=== PATIENT | male | born 2000 | race Caucasian/White ===

== ENCOUNTER 2023-01-18 20:38 | Inpatient (IN) ==
[2023-01-18] MEDS ORDERED: LORazepam 2 MG/1 ML VIAL ONE (20:43)
[2023-01-18] MEDS ORDERED: LEVETIRACETAM IV STA (20:49)
[2023-01-18] MEDS ORDERED: LORazepam 2 MG/1 ML VIAL IV STA ×2 (20:49→20:58)
[2023-01-18] MEDS ORDERED: SODIUM CHLORIDE 0.9% IV STA (20:49)
[2023-01-18] MEDS ORDERED: SODIUM CHLORIDE 0.9% 1,000 ML IV ONE (20:49)
--- NOTE | 2023-01-18 20:53 | Emergency Department Note ---
Impression & Plan Status epilepticus, AMS (altered mental status) ED Provider Note NAME: ALESHA SCHMIDT AGE: 23 SEX: M : 2000 ARRIVES VIA: Ambulance INFORMANT: EMS ED PROVIDER(S): Jamie Carroll DO CHIEF COMPLAINT: AMS HPI: Patient is a 23-year-old male with past medical history of seizure disorder who presents the ER via EMS. History is obtained from EMS due to the patient's mentation/altered mental status. Police were initially called as patient was running around the parking lot in the rain naked. EMS arrived and he was brought in. He was very combative. He had 2 seizures per EMS. His alcohol for the police was 0.8. Per EMS his room in house was covered with marijuana. Significant other was notified. PAST MEDICAL HISTORY:See Below PAST SURGICAL HISTORY:See Below FAMILY HISTORY:See Below SOCIAL HISTORY:See Below HOME MEDICATIONS:See Below ALLERGIES:See Below VITALS:See Below PHYSICAL EXAMINATION: GENERAL: Sitting up in bed, alert, well appearing, well nourished, no distress, non-toxic EYE EXAM: normal conjunctiva. PERRL and EOM's grossly intact. OROPHARYNX: no exudate, no erythema, lips, buccal mucosa, and tongue normal and mucous membranes are moist NECK: supple, no nuchal rigidity, no adenopathy, non-tender LUNGS: Clear to auscultation. Normal chest wall mechanics HEART: no murmurs, S1 normal and S2 normal ABDOMEN: abdomen soft, non-tender, normo-active bowel sounds, no masses, no rebound or guarding. BACK: Back is symmetrical on inspection and there is no deformity, no midline tenderness, no CVA tenderness. SKIN: no rashes and no bruising UPPER EXTREMITIES: upper extremities are grossly normal. LOWER EXTREMITIES: No pitting edema. NEURO EXAM: Normal sensorium, cranial nerves II-XII intact, normal speech, no gross weakness of arms, no gross weakness of legs. No drift. Finger to nose intact. Gross sensation intact. MEDICAL DECISION MAKING: Patient is a 23-year-old male who presents ER for above-stated complaint. Patient was brought in by EMS. He was found to be agitated and combative in the ER not following commands. IV was placed and he was given initially 2 mg of Ativan IV and it was redosed and given another 2 mg of IV Ativan. We are eventually able to obtain blood work and a CT of his head which was unremarkable. Labs showed a mild leukocytosis of 11,000. No significant anemia. BMP was low with a CO2 of 15. Lactate is elevated at 4. LFTs bilirubin was unremarkable. Lipase is normal. Salicylates acetaminophen and alcohol was normal. Unclear if this was an alcohol withdrawal seizure versus drug induced versus seizure disorder. With him having 2 seizures prior to arrival did discuss with the hospitalist patient was admitted for further work- up. Triage Nursing notes reviewed. Limited review of prior medical records performed Vital Signs: reviewed and remarkable for no significant abnormalities Differential diagnosis: Differential diagnosis includes etiologies such as infection, hypoglycemia, electrolyte abnormalities, cardiac sources, intracerebral event, trauma, toxicologic, neurologic, as well as others were entertained. ER treatment provided: See below Diagnostics interpreted by me include EKG and cardiac monitoring as listed below: -Cardiac Monitoring: An order was placed for continuous cardiac monitoring. The monitor shows a rate of 90 with sinus rhythm. -ECG: Sinus tachycardia rate of 115 Normal axis No PVCs QTc 398 -Laboratory studies:Interpreted by me as stated above in MDM and shown below. Imaging studies: Xrays: As interpreted by me: Portable AP upright 1 view of the chest shows no focal CTs show: CT head was negative Consultation(s): As described in MDM Procedures:none Critical Care: None Past Med/Surg History Medical History (Updated 01/19/23 @ 01:20 by Jamie Carroll DO) Seizure Seizure on 01/15/23 and 01/18/23 Surgical History No significant past surgical history Social History Smoking Status: Current every day smoker Tobacco Type: E-cigarettes / Vaping Hx Alcohol Use: Yes Alcohol type: beer and hard liquor Hx Substance Use: Yes Preferred Language: German Waste Duster Required: No Beliefs That Will Affect Care: None marital status: Single Current Living Situation: Significant Other current occupational status: employed Feels Safe at Home: Yes Assistive Devices: None Allergies Allergies Allergy/AdvReac Type Severity Reaction Status Date / Time No Known Allergies Allergy Unverified 01/20/21 01:04 Home Meds Home Medications Medication Instructions Recorded Confirmed ibuprofen 200 mg tablet 400 mg PO Q4 PRN Pain 12/22/20 01/20/21 Results & Data (ED) Vital Signs Vital Signs - 24 hr 01/18/23 20:41 01/18/23 20:43 01/18/23 20:50 Temperature 36.9 C Temperature Source Oral Pulse Rate 93 H 83 94 H Respiratory Rate 22 18 Respiratory Effort / Characteristics Non-Labored Spontaneous Respiratory Depth Normal Respiratory Pattern Regular Blood Pressure 114/74 Blood Pressure Mean 87 Blood Pressure Position Lying Pulse Oximetry 98 94 94 Oxygen Delivery Method Room Air Room Air Room Air Sepsis Recent Fever Within 48 Hours No Sepsis New/Unexplained Change in Mental Status No Sepsis Action Taken by Nursing No Action Required 01/18/23 20:21 Temperature Temperature Source Pulse Rate Respiratory Rate Respiratory Effort / Characteristics Respiratory Depth Respiratory Pattern Blood Pressure Blood Pressure Mean Blood Pressure Position Pulse Oximetry 95 Oxygen Delivery Method Room Air Sepsis Recent Fever Within 48 Hours Sepsis New/Unexplained Change in Mental Status Sepsis Action Taken by Nursing Laboratory Data 01/18/23 20:50 01/18/23 23:15 Lab Results 01/18/23 01/18/23 01/18/23 Range/Units 20:50 20:50 20:50 WBC 11.50 H (4.8-10.8) K/ul RBC 5.49 (4.70-6.10) M/uL Hgb 16.2 (14.0-18.0) g/dl Hct 49.4 (42.0-52.0) % MCV 90.0 (80.0-100.0) fL MCH 29.5 (25.0-34.0) pg MCHC 32.8 (32.0-36.0) g/dL RDW Std Deviation 41.9 (36.4-46.3) fL RDW Coeff of Mingo 12.7 (11.5-14.5) % Plt Count 282 (130-400) K/uL MPV 9.3 L (9.4-12.4) fL Immature Gran % (Auto) 1.0 % Neut % (Auto) 75.0 % Lymph % (Auto) 18.0 % [place] % (Auto) 5.5 % Eos % (Auto) 0.1 % Baso % (Auto) 0.4 % Neut # (Auto) 8.63 H (1.40-6.50) K/uL Lymph # (Auto) 2.07 (1.20-3.40) K/uL [place] # (Auto) 0.63 H (0.11-0.59) K/uL Eos # (Auto) 0.01 (0.00-0.50) K/uL Baso # (Auto) 0.05 (0.00-0.20) K/uL Immature Gran # (Auto) 0.11 (0.01-0.20) K/uL Sodium 143 (136-145) mmol/L Potassium 4.6 (3.5-5.1) mmol/L Chloride 102 (98-107) mmol/L Carbon Dioxide 15 L (21-32) mmol/L Anion Gap 26 H (3-11) BUN 17 (6-23) mg/dl Creatinine 1.22 (0.6-1.4) mg/dl Est Cr Clr Drug Dosing 77.2 ml/min Est GFR ( Amer) 94.9 ml/min Est GFR (Non-Af Amer) 81.9 ml/min BUN/Creatinine Ratio 13.9 (10-20) Glucose 128 H (70-99(Fasting)) mg/dl Osmolality (280-300) mOsm/kg Calcium 10.4 H (8.6-10.3) mg/dl Total Bilirubin 0.6 (0.2-1.0) mg/dl AST 29 (13-39) U/L ALT 15 (7-52) U/L Alkaline Phosphatase 68 (34-104) U/L Total Creatine Kinase 257 H (30-223) U/L Troponin I High Sens 4.5 (0-20) pg/ml Total Protein 9.1 H (6.0-8.3) gm/dl Albumin 5.8 H (3.4-5.0) gm/dl Globulin 3.3 (2.5-4.0) gm/dl Albumin/Globulin Ratio 1.8 (0.9-2) Lipase 15 (11-82) U/L Ethyl Alcohol mg/dL < 10.0 (<10.0) mg/dl 01/18/23 Range/Units 20:50 WBC (4.8-10.8) K/ul RBC (4.70-6.10) M/uL Hgb (14.0-18.0) g/dl Hct (42.0-52.0) % MCV (80.0-100.0) fL MCH (25.0-34.0) pg MCHC (32.0-36.0) g/dL RDW Std Deviation (36.4-46.3) fL RDW Coeff of Mingo (11.5-14.5) % Plt Count (130-400) K/uL MPV (9.4-12.4) fL Immature Gran % (Auto) % Neut % (Auto) % Lymph % (Auto) % [place] % (Auto) % Eos % (Auto) % Baso % (Auto) % Neut # (Auto) (1.40-6.50) K/uL Lymph # (Auto) (1.20-3.40) K/uL [place] # (Auto) (0.11-0.59) K/uL Eos # (Auto) (0.00-0.50) K/uL Baso # (Auto) (0.00-0.20) K/uL Immature Gran # (Auto) (0.01-0.20) K/uL Sodium (136-145) mmol/L Potassium (3.5-5.1) mmol/L Chloride (98-107) mmol/L Carbon Dioxide (21-32) mmol/L Anion Gap (3-11) BUN (6-23) mg/dl Creatinine (0.6-1.4) mg/dl Est Cr Clr Drug Dosing ml/min Est GFR ( Amer) ml/min Est GFR (Non-Af Amer) ml/min BUN/Creatinine Ratio (10-20) Glucose (70-99(Fasting)) mg/dl Osmolality 322 H (280-300) mOsm/kg Calcium (8.6-10.3) mg/dl Total Bilirubin (0.2-1.0) mg/dl AST (13-39) U/L ALT (7-52) U/L Alkaline Phosphatase (34-104) U/L Total Creatine Kinase (30-223) U/L Troponin I High Sens (0-20) pg/ml Total Protein (6.0-8.3) gm/dl Albumin (3.4-5.0) gm/dl Globulin (2.5-4.0) gm/dl Albumin/Globulin Ratio (0.9-2) Lipase (11-82) U/L Ethyl Alcohol mg/dL (<10.0) mg/dl Administered Medications Discontinued Medications Sodium Chloride (Nss) 1,000 mls @ 999 mls/hr IV .Q1H1M ONE Stop: 01/18/23 21:49 Last Infusion: 01/18/23 23:12 Dose: 0 mls/hr Documented By: Admin: 01/18/23 21:05 Dose: 999 mls/hr Documented By: QGV Levetiracetam 2,350 mg/ Sodium (Chloride) 123.5 mls @ 741 mls/hr IV NOW STA Stop: 01/18/23 20:50 Last Infusion: 01/18/23 23:11 Dose: 0 mls/hr Documented By: Admin: 01/18/23 22:16 Dose: 741 mls/hr Documented By: QGV Lorazepam (Lorazepam 2 Mg/1 Ml Vial) Confirm Administered Dose 4 mg .ROUTE .STK- MED ONE Stop: 01/18/23 20:44 Last Admin: 01/18/23 21:06 Dose: Not Given Documented By: QGV Lorazepam (Lorazepam 2 Mg/1 Ml Vial) 4 mg IV NOW STA Stop: 01/18/23 20:50 Last Admin: 01/18/23 21:06 Dose: 4 mg Documented By: QGV Lorazepam (Lorazepam 2 Mg/1 Ml Vial) 2 mg IV NOW STA Stop: 01/18/23 20:59 Last Admin: 01/18/23 23:42 Dose: Not Given Documented By: BS Imaging Data Radiologist's Impression: Head CT 01/18/23 20:49 CT SCAN OF THE BRAIN WITHOUT IV CONTRAST CLINICAL HISTORY: Change in mental status. Intoxication. Assess for seizure. COMPARISON STUDY: CT of the brain dated 01/14/2023. TECHNIQUE: Unenhanced axial CT scan of the brain is performed from the vertex to the skull base. A dose lowering technique was utilized adhering to the principles of ALARA. CT DOSE: 702.09 mGy.cm FINDINGS: Brain parenchyma: The brain parenchyma is normal in appearance. There is no hemorrhage, mass effect, or evidence of acute territorial ischemia by CT criteria. Mcknight-white matter differentiation is preserved. No extra-axial fluid collection is seen. Ventricles, sulci, cisterns: Normal in configuration. Intracranial vasculature: The visualized intracranial vasculature at the skull base is normal in appearance. Calvarium: Unremarkable. Sinuses and mastoids: The visualized paranasal sinuses are clear. The mastoid air cells are well pneumatized. Orbits: The bony orbits are grossly intact. IMPRESSION: No acute intracranial abnormality. ACT 112: Negative or not required by law. Electronically signed by: Yonny Dotson M.D. 01/18/2023 9:44 PM Discharge Plan Visit Data Chief Complaint: Alcohol Intoxication Stated Complaint: ETOH, Confusion ED Provider: Jamie Carroll Discharge Problem: Status epilepticus, AMS (altered mental status) Patient Disposition: Admitted As Inpatient Discharge Instructions Interventions: ED Discharge Assessment Last Done: 01/18/23 23:27
[2023-01-18 21:47] LABS: Basophils # (auto) 0.05 K/uL (0.00-0.20); Basophils % (auto) 0.4 %; Eosinophils # (auto) 0.01 K/uL (0.00-0.50); Eosinophils % (auto) 0.1 %; Hematocrit (blood only) 49.4 % (42.0-52.0); Hemoglobin 16.2 g/dl (14.0-18.0); Immature Granulocytes # (auto) 0.11 K/uL (0.01-0.20); Lymphocytes # (auto) 2.07 K/uL (1.20-3.40); Mean Corpuscular Hemoglobin 29.5 pg (25.0-34.0); Mean Corpuscular Hgb Conc 32.8 g/dL (32.0-36.0); Mean Platelet Volume 9.3 fL (9.4-12.4); Monocytes # (auto) 0.63 K/uL (0.11-0.59); Monocytes % (auto) 5.5 %; Neutrophils # (auto) 8.63 K/uL (1.40-6.50); Platelet Count 282 K/uL (130-400); RDW Coefficient of Variation 12.7 % (11.5-14.5); RDW Standard Deviation 41.9 fL (36.4-46.3); Red Blood Count 5.49 M/uL (4.70-6.10)
--- NOTE | 2023-01-18 21:47 | CT Scan Report ---
CT SCAN OF THE BRAIN WITHOUT IV CONTRAST CLINICAL HISTORY: Change in mental status. Intoxication. Assess for seizure. COMPARISON STUDY: CT of the brain dated 01/14/2023. TECHNIQUE: Unenhanced axial CT scan of the brain is performed from the vertex to the skull base. A d ose lowering technique was utilized adhering to the principles of ALARA. CT DOSE: 702.09 mGy.cm FINDINGS: Brain parenchyma: The brain parenchyma is normal in appearance. There is no hemorrhage, mass effect, or evidence of acute territorial ischemia by CT criteria. Mcknight-white matter differentiation is preser kat. No extra-axial fluid collection is seen. Ventricles, sulci, cisterns: Normal in configuration. Intracranial vasculature: The visualized intracranial vasculature at the skull base is normal in appe arance. Calvarium: Unremarkable. Sinuses and mastoids: The visualized paranasal sinuses are clear. The mastoid air cells are well pneu matized. Orbits: The bony orbits are grossly intact. IMPRESSION: No acute intracranial abnormality. ACT 112: Negative or not required by law. Electronically signed by: Yonny Dotson M.D. 01/18/2023 9:44 PM
[2023-01-18 22:04] LABS: Albumin Globulin Ratio 1.8 (0.9-2); Albumin Level 5.8 gm/dl (3.4-5.0); BUN Creatinine Ratio 13.9 (10-20); Bilirubin,Total 0.6 mg/dl (0.2-1.0); Calcium 10.4 mg/dl (8.6-10.3); Creatinine Clr Calc Pharmacy 77.2 ml/min; Est GFR (African American) 94.9 ml/min; Est GFR (Non-African American) 81.9 ml/min; Globulin 3.3 gm/dl (2.5-4.0); Potassium 4.6 mmol/L (3.5-5.1); Total Protein 9.1 gm/dl (6.0-8.3)
[2023-01-18 22:10] LABS: Troponin I High Sensitivity 4.5 pg/ml (0-20)
--- NOTE | 2023-01-18 22:54 | History & Physical Report ---
Date of Service January 18, 2023 Assessment & Plan (1) Seizure: Plan: 23yo male brought in by ambulance after being found running around naked. Patient combative. Witnessed seizure x 2 which resolved Ativan given in the field. Patient with mild leukocytosis as well as high anion gap metabolic acidosis with HCO3=15. Gap of 26. Patient loaded with Keppra and given Ativan in ER Patient had seizure on 01/15/23 as well - per documentation review, presume that this was his first seizure. His UTox at that time was POSITIVE for high amounts of THC. -Admit to PCU -Maintain seizure precautions -Check MRI brain with seizure protocol -EEG ordered - will likely need to be completed outpatient (2) High anion gap metabolic acidosis: Plan: Patient with anion gap of 26 at present, HCO3=15. Osmolar gap is calculated at 23 presently -Will repeat BMP, Osm now as well as VBG and Lactate -If osmolar gap persists will discuss with MICU and consider Fomepizole for possible Methanol or Ethylene glycol ingestion History of Present Illness Chief Complaint: seizure Primary Care Provider: NO PCP Anatoliy Vincent is a 23yo male with no significant past medical history presenting with seizure. Patient was found by police this evening running around and dancing naked in the rain. A breathalyzer test was taken on site and patient registered at 0.7. EMS was called and he was brought in by ambulance. Patient combative in the field. He had two witnessed seizures. Was administered Ativan 2mg by EMS prior to arrival. Upon arrival to the ER patient afebrile, HD stable. He continued to be combative and was administered 4mg IV Ativan with improvement. Of note, patient was seen in the ER on 01/15/23 after a seizure which was thought to be secondary to EtOH + Marijuana use. Patient unable to provide clear details of history at this time but the seizure on 01/15/23 seems to be his first seizure. He is not on any AEDs and has no listed past medial history in his chart. ER Course: Keppra 2350mg Ativan 4mg NSS x 1L Allergies Allergy/AdvReac Type Severity Reaction Status Date / Time No Known Allergies Allergy Unverified 01/20/21 01:04 Home Medications Medication Instructions Recorded Confirmed Type ibuprofen 200 mg tablet 400 mg PO Q4 PRN Pain 12/22/20 01/20/21 History Past Med/Surg History Medical History (Updated 01/18/23 @ 22:49 by Samantha Snider DO) Seizure Seizure on 01/15/23 and 01/18/23 Surgical History No significant past surgical history Social History Smoking Status: Unknown if ever smoked Tobacco Type: E-cigarettes / Vaping Preferred Language: Upper Sorbian marital status: Single current occupational status: employed Feels Safe at Home: Declines to Answer Review of Systems Review of Systems: Unobtainable due to cognitive status Physical Exam Physical Exam: General: patient somnolent after receiving Ativan, post-ictal state. NAD, resting comfortably. Opens eyes to noxious stimuli. Limited verbal response Skin: warm, dry, intact, no rashes or lesions HEENT: NC/AT, no bruising/laceration or facial bone instability, no mastoid redness or bruising, PERRL, anicteric sclera, conjunctiva without injection, external ear normal to inspection and nontender, nares patent, moist mucus membranes, dentition intact, no oropharyngeal lesions, neck supple, no c-spine deformity or step-off, trachea midline, no LAD, no thyromegaly, no JVD Heart: +S1/S2, regular, no m/r/g, normal chest wall motion, no bruising Lungs: equal air entry bilaterally, no rales/rhonchi/wheezes Abd: +BS, soft, NT/ND, no masses/organomegaly/ascites, no abdominal wall bruising Ext: warm, 2+ pulses in UE/LE bilaterally, no clubbing/cyanosis or edema Neuro: somnolent, arousable, PERRL, minimal verbal response, withdraws 4 extremities from noxious stimuli Results & Data Results & Data Vital Signs (Past 12 Hours) Vital Signs Temp Pulse Resp BP Pulse Ox O2 Del Method 01/18/23 20:50 94 H 94 Room Air 01/18/23 20:43 83 18 94 Room Air 01/18/23 20:41 36.9 C 93 H 22 114/74 98 Room Air Laboratory Results Laboratory Results WBC 11.50 K/ul (4.8-10.8) H 01/18/23 20:50 RBC 5.49 M/uL (4.70-6.10) 01/18/23 20:50 Hgb 16.2 g/dl (14.0-18.0) 01/18/23 20:50 Hct 49.4 % (42.0-52.0) 01/18/23 20:50 MCV 90.0 fL (80.0-100.0) 01/18/23 20:50 MCH 29.5 pg (25.0-34.0) 01/18/23 20:50 MCHC 32.8 g/dL (32.0-36.0) 01/18/23 20:50 RDW Std Deviation 41.9 fL (36.4-46.3) 01/18/23 20:50 RDW Coeff of Mingo 12.7 % (11.5-14.5) 01/18/23 20:50 Plt Count 282 K/uL (130-400) 01/18/23 20:50 MPV 9.3 fL (9.4-12.4) L 01/18/23 20:50 Immature Gran % (Auto) 1.0 % 01/18/23 20:50 Neut % (Auto) 75.0 % 01/18/23 20:50 Lymph % (Auto) 18.0 % 01/18/23 20:50 [place] % (Auto) 5.5 % 01/18/23 20:50 Eos % (Auto) 0.1 % 01/18/23 20:50 Baso % (Auto) 0.4 % 01/18/23 20:50 Neut # (Auto) 8.63 K/uL (1.40-6.50) H 01/18/23 20:50 Lymph # (Auto) 2.07 K/uL (1.20-3.40) 01/18/23 20:50 [place] # (Auto) 0.63 K/uL (0.11-0.59) H 01/18/23 20:50 Eos # (Auto) 0.01 K/uL (0.00-0.50) 01/18/23 20:50 Baso # (Auto) 0.05 K/uL (0.00-0.20) 01/18/23 20:50 Immature Gran # (Auto) 0.11 K/uL (0.01-0.20) 01/18/23 20:50 Sodium 143 mmol/L (136-145) 01/18/23 20:50 Potassium 4.6 mmol/L (3.5-5.1) 01/18/23 20:50 Chloride 102 mmol/L (98-107) 01/18/23 20:50 Carbon Dioxide 15 mmol/L (21-32) L 01/18/23 20:50 Anion Gap 26 (3-11) H 01/18/23 20:50 BUN 17 mg/dl (6-23) 01/18/23 20:50 Creatinine 1.22 mg/dl (0.6-1.4) 01/18/23 20:50 Est Cr Clr Drug Dosing 77.2 ml/min 01/18/23 20:50 Est GFR ( Amer) 94.9 ml/min 01/18/23 20:50 Est GFR (Non-Af Amer) 81.9 ml/min 01/18/23 20:50 BUN/Creatinine Ratio 13.9 (10-20) 01/18/23 20:50 Glucose 128 mg/dl (70-99(Fasting)) H 01/18/23 20:50 Osmolality 322 mOsm/kg (280-300) H 01/18/23 20:50 Calcium 10.4 mg/dl (8.6-10.3) H 01/18/23 20:50 Total Bilirubin 0.6 mg/dl (0.2-1.0) 01/18/23 20:50 AST 29 U/L (13-39) 01/18/23 20:50 ALT 15 U/L (7-52) 01/18/23 20:50 Alkaline Phosphatase 68 U/L (34-104) 01/18/23 20:50 Total Creatine Kinase 257 U/L (30-223) H 01/18/23 20:50 Troponin I High Sens 4.5 pg/ml (0-20) 01/18/23 20:50 Total Protein 9.1 gm/dl (6.0-8.3) H 01/18/23 20:50 Albumin 5.8 gm/dl (3.4-5.0) H 01/18/23 20:50 Globulin 3.3 gm/dl (2.5-4.0) 09/09/23 20:50 Albumin/Globulin Ratio 1.8 (0.9-2) 01/18/23 20:50 Lipase 15 U/L (11-82) 01/18/23 20:50 Ethyl Alcohol mg/dL < 10.0 mg/dl (<10.0) 01/18/23 20:[address] 01/18/23 20:49 CT SCAN OF THE BRAIN WITHOUT IV CONTRAST CLINICAL HISTORY: Change in mental status. Intoxication. Assess for seizure. COMPARISON STUDY: CT of the brain dated 01/14/2023. TECHNIQUE: Unenhanced axial CT scan of the brain is performed from the vertex to the skull base. A dose lowering technique was utilized adhering to the principles of ALARA. CT DOSE: 702.09 mGy.cm FINDINGS: Brain parenchyma: The brain parenchyma is normal in appearance. There is no hemorrhage, mass effect, or evidence of acute territorial ischemia by CT criteria. Mcknight-white matter differentiation is preserved. No extra-axial fluid collection is seen. Ventricles, sulci, cisterns: Normal in configuration. Intracranial vasculature: The visualized intracranial vasculature at the skull base is normal in appearance. Calvarium: Unremarkable. Sinuses and mastoids: The visualized paranasal sinuses are clear. The mastoid air cells are well pneumatized. Orbits: The bony orbits are grossly intact. IMPRESSION: No acute intracranial abnormality. ACT 112: Negative or not required by law. Electronically signed by: Yonny Dotson M.D. 01/18/2023 9:44 PM ECG Additional Comments: EKG with ST at 150, poor tracing PG Care Time/CCT Total # of Minutes Spent Total Time Spent with Patient: Total time spent is greater than 50% in coordination of care (as documented) at patient's floor/unit and/or counseling patient: Coding Level of Care Code 89978 INT INP/OBS CARE 3/75MIN Diagnoses Seizure R56.9 High anion gap metabolic acidosis E87.29
[2023-01-18 23:36] LABS: HCO3 VBG 27 mmol/L; Oxygen Saturation VBG < 60.0 %; PCO2 VBG 57 mmHg (38-50); PO2 VBG 31 mmHg; pH VBG 7.28 (7.36-7.41)
[2023-01-19 00:11] LABS: BUN Creatinine Ratio 17.3 (10-20); Calcium 9.2 mg/dl (8.6-10.3); Creatinine Clr Calc Pharmacy 96.2 ml/min; Est GFR (African American) 123.7 ml/min; Est GFR (Non-African American) 106.7 ml/min; Magnesium 1.8 mg/dl (1.7-2.4); Phosphorus 2.4 mg/dl (2.5-4.9); Potassium 4.4 mmol/L (3.5-5.1)
[2023-01-19 00:25] LABS: Acetaminophen < 3 ug/ml (10-30); Salicylate < 3.0 mg/dl (3.0-30)
[2023-01-19 06:17] LABS: Calcium 9.3 mg/dl (8.6-10.3); Creatinine Clr Calc Pharmacy 103.6 ml/min; Est GFR (African American) 135.3 ml/min; Est GFR (Non-African American) 116.7 ml/min; Potassium 3.8 mmol/L (3.5-5.1)
[2023-01-19 06:33] LABS: Hematocrit (blood only) 39.3 % (42.0-52.0); Hemoglobin 13.8 g/dl (14.0-18.0); Mean Corpuscular Hemoglobin 29.9 pg (25.0-34.0); Mean Corpuscular Hgb Conc 35.1 g/dL (32.0-36.0); Mean Corpuscular Volume 85.4 fL (80.0-100.0); Mean Platelet Volume 8.8 fL (9.4-12.4); Platelet Count 210 K/uL (130-400); RDW Coefficient of Variation 12.6 % (11.5-14.5); RDW Standard Deviation 38.9 fL (36.4-46.3); Red Blood Count 4.62 M/uL (4.70-6.10); White Blood Count 13.16 K/ul (4.8-10.8)
--- NOTE | 2023-01-19 07:59 | XRay Report ---
XR chest 1V portable HISTORY: Chest pain, nonspecific COMPARISON: None. FINDINGS: The lungs are clear. Cardiac silhouette is normal in size. No pleural effusions. No pneumot horax. IMPRESSION: No acute process. ACT 112: Negative or not required by law. Electronically signed by: Gamal Abdul M.D. 01/19/2023 7:57 AM
--- NOTE | 2023-01-19 09:19 | Electrocardiogram Report ---
Test Reason : Blood Pressure : / mmHG Vent. Rate : 150 BPM Atrial Rate : 150 BPM P-R Int : 114 ms QRS Dur : 078 ms QT Int : 252 ms P-R-T Axes : 082 081 089 degrees QTc Int : 398 ms Poor data quality, interpretation may be adversely affected Sinus tachycardia Premature ventricular complexes Nonspecific ST and T wave abnormality Abnormal ECG When compared with ECG of 14-JAN-2023 04:16, Non-specific change in ST segment in Lateral leads Nonspecific T wave abnormality now evident in Lateral leads Confirmed by Corbin Eden ([id number]) on 01/19/2023 9:19:30 AM Referred By: REFERRED SELF Confirmed By:Corbin Eden
[2023-01-19] MEDS: LACTATED RINGER'S 1,000 ML IV SCH ×3 (11:38→22:39)
--- NOTE | 2023-01-19 12:16 | Magnetic Resonance Report ---
Brain MRI WITH AND WITHOUT CONTRAST HISTORY: new seizures- recurrent TECHNIQUE: Multiplanar multisequence MRI of the brain was performed both before and after the intrave nous administration of contrast. COMPARISON STUDY: Head CT 01/18/2023. FINDINGS: There are no areas of restricted diffusion to suggest acute infarction. The midline structu res are intact. The paranasal sinuses are clear. The mastoid air cells are clear. The ventricles and sulci are within normal limits for age. There is no mass, hematoma, midline shift. The major vascular flow-voids at the skull base are well maintained. Postcontrast sequences show no areas of abnormal e nhancement. Best seen on coronal FLAIR sequence image 12 of there is suggestion of mild increase t hickening and subtle increased T2 signal in the medial right temporal lobe. This raises the possibili ty of a seizure focus. IMPRESSION: 1. No acute infarct or intracranial hemorrhage. 2. Questionable increased T2 signal and thickening at the medial right temporal lobe in comparison to the left. This raises the possibly a seizure focus. Follow-up recommended to ensure stability/resolu tion. ACT 112: Negative or not required by law. Electronically signed by: Gamal Abdul M.D. 01/19/2023 12:14 PM
--- NOTE | 2023-01-19 21:38 | Hospitalist Progress Note ---
Date of Service January 19, 2023 Assessment & Plan (1) Seizure: Plan: 23yo male brought in by ambulance after being found running around naked. Patient combative. Witnessed seizure x 2 which resolved Ativan given in the field. Patient with mild leukocytosis as well as high anion gap metabolic acidosis with HCO3=15. Gap of 26. Patient loaded with Keppra and given Ativan in ER Patient had seizure on 01/15/23 as well - per documentation review, presume that this was his first seizure. His UTox at that time was POSITIVE for high amounts of THC. -Admit to PCU -Maintain seizure precautions -Check MRI brain with seizure protocol: negative -EEG ordered - will likely need to be completed outpatient. will monitor for another 24 hours (2) High anion gap metabolic acidosis: Plan: Patient with anion gap of 26 at present, HCO3=15. Osmolar gap is calculated at 23 presently -Will repeat BMP, Osm now as well as VBG and Lactate -If osmolar gap persists will discuss with MICU and consider Fomepizole for possible Methanol or Ethylene glycol ingestion Admission and Anticipated Discharge Date Admission Date: January 18, 2023 Subjective 23 yo male reports no new symptoms. Review of Systems Review of Systems: All systems reviewed & are unremarkable except as noted in HPI & below Physical Exam Constitutional: WD/WN, vitals as above Eyes: PERRL, conjunctivae normal, anicteric sclerae ENMT: external ear and nose normal, oropharynx normal Neck: trachea midline, no thyromegaly Respiratory: normal respiratory effort, lungs clear to auscultation Cardiovascular: RRR, no murmur, no edema Gastrointestinal (Abdomen): normal bowel sounds, soft, nontender, no hepatosplenomegaly Skin: no rashes, warm and dry Neurologic: PERRL, EOMI, accommodation nl, no face palsy, no dysarthria Psychiatric: A+Ox3, euthymic affect Results & Data Results & Data Vital Signs (Past 12 Hours) Vital Signs Temp Pulse Resp BP Pulse Ox O2 Del Method 01/19/23 19:18 36.8 C 68 16 121/77 93 Room Air 01/19/23 15:50 36.4 C L 62 16 120/75 100 Room Air 01/19/23 11:43 36.7 C 51 L 16 125/74 94 Room Air PG Care Time/CCT Total # of Minutes Spent Total Time Spent with Patient: Total time spent is greater than 50% in coordination of care (as documented) at patient's floor/unit and/or counseling patient: Coding Level of Care Code 02935 SUB INP/OBS CARE 235MIN Diagnoses Seizure R56.9 High anion gap metabolic acidosis E87.29
[2023-01-19] MEDS ORDERED: LORazepam 2 MG/1 ML VIAL IV PRN (22:39)
[2023-01-20 06:49] LABS: Hematocrit (blood only) 36.7 % (42.0-52.0); Hemoglobin 12.9 g/dl (14.0-18.0); Mean Corpuscular Hemoglobin 29.5 pg (25.0-34.0); Mean Corpuscular Hgb Conc 35.1 g/dL (32.0-36.0); Mean Platelet Volume 8.9 fL (9.4-12.4); Platelet Count 160 K/uL (130-400); RDW Coefficient of Variation 12.4 % (11.5-14.5); RDW Standard Deviation 37.9 fL (36.4-46.3); Red Blood Count 4.37 M/uL (4.70-6.10); White Blood Count 5.86 K/ul (4.8-10.8)
[2023-01-20 06:54] LABS: BUN Creatinine Ratio 14.9 (10-20); Calcium 8.6 mg/dl (8.6-10.3); Creatinine Clr Calc Pharmacy 129.9 ml/min; Est GFR (African American) 148.6 ml/min; Est GFR (Non-African American) 128.2 ml/min; Potassium 3.5 mmol/L (3.5-5.1)
--- NOTE | 2023-01-20 11:30 | Neurology Consultation ---
Date of Consultation January 20, 2023 Assessment & Plan (1) Seizure: Patient presents with seizure in the setting of alcohol and marijuana use. This is his second provoked seizure. His temporal lobe may be asymmetric though difficult to tell on coronal flair only. Mesial temporal changes are common post-seizure. Without a leukocytosis, headache, fever, meningeal signs the likelihood of HSV which also affects this area is less likely. Would not recommend LP at this point. Would not start an AED for provoked seizure but recommended he refrain from further alcohol intake. He needs a routine EEG and follow-up MRI as an outpatient. Would perform second MRI as epilepsy protocol with thin cuts and contrast. -- Routine EEG outpatient -- MRI brain with and without contrast with epilepsy protocol/thin cuts -- Would not recommend AED at this time, patient should refrain from drinking alcohol. -- Close neuro follow-up after discharge for above testing, please contact us with further questions. Telehealth Consultation Telehealth Information Telehealth Information: I performed this visit using a real-time telehealth connection between my location and the patients location ([facility]). After connecting through interactive tele-video, patient was identified by name and date of and/or wristband check.Patient (or authorized healthcare renewals representative) was informed that this was a telemedicine visit and it was being conducted confidentially over secure lines. My office door was closed and no one else was present in the room with me.Patient (or authorized healthcare repr esentative) provided consent to proceed with the visit, expressed an understanding of privacy and security of the telemedicine visit, and gave permission to have a hospital renewals representative in the room in order to assist with the visit and to conduct portions of the visit, as needed. I informed the patient (or authorized healthcare renewals representative) that I reviewed their record and presented the opportunity for them to ask any questions regarding the visit today. The patient agreed to participate. History of Present Illness Reason for Consultation: Seizure Requesting Physician: Dr. Richards Attending Physician: Jadiel Richards History of Present Illness Anatoliy Vincent is a 23 yo M presenting with a second time seizure yesterday. The patient reports drinking and smoking marijuana at his birthday republic[employer]. He remembers calling into work then waking up naked surrounded by police. He was found to have a significant acidosis upon arrival. The prior seizure on 01/15 was under similar circumstances of alcohol use. He has no history of prior seizure, febrile seizures. No description of aura. No prior brain infection, no neck stillness no recent illness. No history of migraine, denies any focal weakness and numbness. Allergies Allergy/AdvReac Type Severity Reaction Status Date / Time pollen extracts Allergy Severe Congested Unverified 01/19/23 20:48 Home Medications Medication Instructions Recorded Confirmed Type ibuprofen 200 mg tablet 400 mg PO Q4 PRN Pain 12/22/20 01/19/23 History Patient History Medical History (Updated 01/19/23 @ 01:20 by Jamie Carroll DO) Seizure Seizure on 01/15/23 and 01/18/23 Surgical History No significant past surgical history Social History Smoking Status: Current every day smoker Tobacco Type: E-cigarettes / Vaping Hx Alcohol Use: Yes Alcohol type: beer and hard liquor Hx Substance Use: Yes Preferred Language: Niue[place] [employer] Required: No Beliefs That Will Affect Care: None marital status: Single Current Living Situation: Significant Other current occupational status: employed Feels Safe at Home: Yes Assistive Devices: None Review of Systems +seizure Physical Exam Neurological Examination: Mental Status: Awake and alert. Oriented to person, place, and time. Fluent. Comprehension intact. Affect appropriate. Cranial Nerves: II: pupils 3/3 to 2/2 III/IV/: Versions intact without nystagmus, no gaze preference. V: Facial sensation symmetric to light touch VII: Facial expression symmetric VIII: Hearing intact to voice IX/X: Palate elevates symmetrically XI: Shoulder shrug symmetric XII: Tongue midline Motor: Strength was symmetric and antigravity throughout. Pronator drift was absent. There were no abnormal movements. Sensory: Sensation to light touch was intact. Reflexes: Unable to assess over telemedicine Results & Data Vital Signs (Past 12 Hours) Vital Signs Temp Pulse Pulse Resp BP Pulse Ox O2 Del Method 01/20/23 08:00 44 L 01/20/23 07:34 36.4 C L 60 17 122/73 100 Room Air 01/20/23 03:26 36.6 C 80 16 106/66 98 Room Air Laboratory Results Abnormal lab results 01/20/23 Range/Units 06:22 RBC 4.37 L (4.70-6.10) M/uL Hgb 12.9 L (14.0-18.0) g/dl Hct 36.7 L (42.0-52.0) % MPV 8.9 L (9.4-12.4) fL Diagnostic Findings MRI brain - possible R hippocampal swelling
[2023-01-20 12:22] LABS: Amphetamines+Metham, Urine Neg (Neg); Barbiturates, Urine Neg (Neg); Benzodiazepine, Urine Neg (Neg); Cocaine, Urine Neg (Neg); MDMA (Ecstacy), Urine Neg (Neg); Methadone, Urine Neg (Neg); Opiate, Urine Neg (Neg); Phencyclidine, Urine Neg (Neg)
--- NOTE | 2023-01-20 12:24 | Discharge Summary ---
Date of Service January 20, 2023 Admission HPI Per Admitting Provider Anatoliy Vincent is a 23yo male with no significant past medical history presenting with seizure. Patient was found by police this evening running around and dancing naked in the rain. A breathalyzer test was taken on site and patient registered at 0.7. EMS was called and he was brought in by ambulance. Patient combative in the field. He had two witnessed seizures. Was administered Ativan 2mg by EMS prior to a rrival. Upon arrival to the ER patient afebrile, HD stable. He continued to be combative and was administered 4mg IV Ativan with improvement. Of note, patient was seen in the ER on 01/15/23 after a seizure which was thought to be secondary to EtOH + Marijuana use. Patient unable to provide clear details of history at this time but the seizure on 01/15/23 seems to be his first seizure. He is not on any AEDs and has no listed past medial history in his chart. ER Course: Keppra 2350mg Ativan 4mg NSS x 1L Principal Diagnosis seizures likely alcohol induced Discharge Exam Constitutional WD/WN, vitals as above Eyes PERRL, conjunctivae normal, anicteric sclerae ENMT external ear and nose normal, oropharynx normal Neck trachea midline, no thyromegaly Respiratory normal respiratory effort, lungs clear to auscultation Cardiovascular RRR, no murmur, no edema Gastrointestinal (Abdomen) normal bowel sounds, soft, nontender, no hepatosplenomegaly Skin no rashes, warm and dry Neurologic PERRL, EOMI, accommodation nl, no face palsy, no dysarthria Psychiatric A+Ox3, euthymic affect Discharge Data Allergies Allergy/AdvReac Type Severity Reaction Status Date / Time pollen extracts Allergy Severe Congested Unverified 01/19/23 20:48 Consultations 01/18/23 22:10 ED Decision to Admit Stat 01/19/23 19:33 Consult Neurology Routine Ordered Studies 01/18/23 20:49 CT head/brain wo con Stat 01/19/23 09:30 MR brain seizure wo con Routine Hospital Course (1) Seizure: 23yo male brought in by ambulance after being found running around naked. Patient combative. Witnessed seizure x 2 which resolved Ativan given in the field. Patient with mild leukocytosis as well as high anion gap metabolic acidosis with HCO3=15. Gap of 26. Patient loaded with Keppra and given Ativan in ER Patient had seizure on 01/15/23 as well - per documentation review, presume that this was his first seizure. His UTox at that time was POSITIVE for high amounts of THC. -Admitted to PCU -Maintained seizure precautions -Check MRI brain with seizure protocol: negative -EEG ordered - will likely need to be completed outpatient. Appreciate input from Neuro: -- Routine EEG outpatient -- MRI brain with and without contrast with epilepsy protocol/thin cuts -- Would not recommend AED at this time, patient should refrain from drinking alcohol. -- Close neuro follow-up after discharge for above testing, please contact us w ith further questions. Patient already had license revoked as per Neuro (2) High anion gap metabolic acidosis: Patient with anion gap of 26 at present, HCO3=15. Osmolar gap is calculated at 23 presently -blood work improved at discharge Total Time Total Time Spent Total Time Spent (In Minutes): 35 Discharge Plan Discharge Items Patient Disposition: Home - Self-Care Reason For Visit: SEIZURE Discharge Diagnosis: seizure Activity: Resume your previous activity Non-emergency contact: Primary Care Provider Call non-emergency contact if: you have any medication questions Follow-up/Referrals: PCP,NO [Primary Care Provider] - Diet: Regular Addtl Attending Provider Instructions: Please abstain from Alcohol as both situations of you seizing occurred when you were binge drinking. Recommend folllowup with Neurology as an outpatient. They should order the following test: -- Routine EEG outpatient -- MRI brain with and without contrast with epilepsy protocol/thin cuts Also recommend followup with a PCP. Pending Studies at Discharge: No Stand-Alone Forms: My [facility] [employer], Smoking Cessation Medications and DC Order Prescriptions: Continued ibuprofen 200 mg Tablet 400 mg PO Q4 PRN (Reason: Pain) Discharge Orders: Discharge Order (Routine); Ordered 01/20/23 Ordered By: Jadiel Richards Admission Data Admit Date/Time: 01/18/23 22:39 Attending Provider: Jadiel Richards Admit Provider: Samantha Snider Primary Care Provider: PCP,NO Other Providers: Samantha Snider ; Ramesh Marcano Coding Level of Care Code 56230 INP/OBS DISCH >30 MIN Diagnoses Seizure R56.9 High anion gap metabolic acidosis E87.29
--- NOTE | 2023-01-21 06:40 | Electroencephalogram ---
EEG Procedure Note Date of Service January 20, 2023 Start / End Times Start Time: 10:20 End Time: 10:40 Referring Physician Samantha Snider History A 23 year old male with possible seizure. EEG performed for evaluation of epileptiform activity. Home Medication List Medication Instructions Recorded Confirmed Type ibuprofen 200 mg tablet 400 mg PO Q4 PRN Pain 12/22/20 01/19/23 History Inpatient Medication List Discontinued Medications Sodium Chloride (Nss) 1,000 mls @ 999 mls/hr IV .Q1H1M ONE Stop: 01/18/23 21:49 Last Infusion: 01/18/23 23:12 Dose: 0 mls/hr Documented By: Admin: 01/18/23 21:05 Dose: 999 mls/hr Documented By: QGV Levetiracetam 2,350 mg/ Sodium (Chloride) 123.5 mls @ 741 mls/hr IV NOW STA Stop: 01/18/23 20:50 Last Infusion: 01/18/23 23:11 Dose: 0 mls/hr Documented By: Admin: 01/18/23 22:16 Dose: 741 mls/hr Documented By: QGV Lactated Ringer's (Lr) 1,000 mls @ 250 mls/hr IV .Q4H KELI Stop: 01/19/23 23:14 Last Infusion: 01/20/23 02:39 Dose: 0 mls/hr Documented By: Admin: 01/19/23 22:39 Dose: 250 mls/hr Documented By: Infusion: 01/19/23 21:55 Dose: 250 mls/hr Documented By: Admin: 01/19/23 17:55 Dose: 250 mls/hr Documented By: Infusion: 01/19/23 15:38 Dose: 250 mls/hr Documented By: Admin: 01/19/23 11:38 Dose: 250 mls/hr Documented By: CAM Lorazepam (Lorazepam 2 Mg/1 Ml Vial) Confirm Administered Dose 4 mg .ROUTE .STK- MED ONE Stop: 01/18/23 20:44 Last Admin: 01/18/23 21:06 Dose: Not Given Documented By: QGV Lorazepam (Lorazepam 2 Mg/1 Ml Vial) 4 mg IV NOW STA Stop: 01/18/23 20:50 Last Admin: 01/18/23 21:06 Dose: 4 mg Documented By: QGV Lorazepam (Lorazepam 2 Mg/1 Ml Vial) 2 mg IV NOW STA Stop: 01/18/23 20:59 Last Admin: 01/18/23 23:42 Dose: Not Given Documented By: BS Description This is a 21 electrode EEG with a single channel dedicated to limited EKG. The electrodes were placed in accordance with the International 10-20 system. REPORT: At the onset of the EEG, the patient is awake. The background is symmetric and consist of a mixture of low voltage indeterminate activity and 15- 25 Hz, persistent, low amplitude, symmetric and rhythmic activity. Stepwise intermittent photic stimulation (1-21 Hz) does not induce any abnormalities. Drowsiness is characterized by low amplitude mixed frequency activity, roving eye movements, and decreased eye blinking and muscle artifact. Interpretation IMPRESSION: This is a normal awake and drowsy routine EEG. There is no evidence of focal slowing or epileptiform activity. Excessive beta activity is s normal variant and can be seen as medication effect (ie benzodiazepines).
[2023-01-22 09:11] LABS: Marijuana Quant, GCMS Urine 445 ng/mL (<5)
[2023-01-22 10:42] LABS: Methyl Alcohol Comment WHOLE BLOOD; Methyl Alcohol Level NONE DETECTED (NONE DETECTED)
== END 2023-01-20 13:33 | disposition home or self-care (01) | DRG 101 ==
LOC: ED 20:38 → SUATTDRO 22:39 → 4W 22:39

== ENCOUNTER 2023-07-01 08:09 | Observation (INO) ==
--- NOTE | 2023-07-01 08:35 | Emergency Department Note ---
Impression & Plan Observed seizure-like activity ADMIT ED Provider Note HPI: History obtained from patient and girlfriend at bedside. The patient is a 23-year-old gentleman with history of seizure disorder, history of alcohol abuse, presents the emergency department with a chief complaint of 2 witnessed seizures this morning. Patient's girlfriend at the bedside is serving as the primary historian, she states that at approximately 5 AM she was awoken from sleep when the patient was having some seizure-like activity next to her. She states that she believes this lasted about 1 minute. Patient seemed to come back to his baseline mental status shortly thereafter and therefore they did not seek medical care immediately, patient rested in bed for about another 2 hours and then at around 7:30 PM he began to have some twitching of his eye and had another seizure-like event that lasted about 1 minute. Patient's girlfriend states she contacted EMS at this time. On arrival here to the ED the patient is alert and oriented x 3, he does not exhibit any focal deficits, he otherwise appears to be in no acute distress. ROS: - Per HPI Differential Diagnosis: Alcohol withdrawal seizure, epilepsy, medication noncompliance in setting of underlying seizure disorder, nonepileptic seizures, meningitis, amongst other potential pathologies. *Outpatient medications and allergy history reviewed. PE: General: Alert HEENT: Normocephalic, trachea midline, full range of motion of the cervical spine is appreciated without limitation or pain Eyes: Extraocular eye movement is intact, no scleral erythema Pulmonary: Clear to auscultation bilaterally, no wheezing Cardio: Regular rate and rhythm GI: Abdomen is soft to palpation : No suprapubic tenderness MSK: No evidence of trauma or malformation of the extremities, no edema Skin: No evidence of rash Neuro: Alert, no focal deficits, symmetrical facial movements are appreciated, patient ambulates all extremities spontaneously without issue Psychiatric: Cooperative INDEPENDENT INTERPRETATIONS: radiation monitor: (As interpreted by myself): - An order was placed for continuous cardiac monitoring - Patient was noted to be in sinus rhythm with a rate of 80 EKG: (As interpreted by myself): Rate: 88 Rhythm: Normal sinus rhythm Intervals: Within normal limits ST changes: No ST elevation Time: 0831 Interventions provided in ED: -IV fluid bolus, IV Keppra, IV Ativan, IV folic acid, IV thiamine Medical Decision Making: Shortly after the patient arrived IV was established and lab work obtained, patient was placed under seizure precautions. Lab work shows a leukocytosis of 16.04, hemoglobin is normal, platelet count is normal, CMP does not show any critical findings, serum bicarbonate level is reduced at 16, lactic acid is normal. CT imaging of the head was obtained and there is no evidence of any acute intracranial pathology. On my reassessment the patient remains resting comfortably in bed, upon further history the patient's girlfriend states that he does drink about 5 times a week and she estimates he drinks 5-10 alcoholic beverages each day. Patient states his last drink was about 2 days ago. Upon review of his outpatient EEG done through [facility] in February 2023, no evidence of epileptiform activity or focal asymmetries were noted. Patient was given IV fluids, IV Keppra, IV Ativan, IV folic acid as well as IV thiamine over concern for potential alcohol withdrawal seizure. Patient does have a leukocytosis on his lab work however no recent fevers, he does not appear meningitic on my exam. Low concern for meningitis. He is hemodynamically stable on my reassessment. His girlfriend states he is also had minimal compliance with his antiepileptic medications. Unclear source for his seizure- like activity this morning, possibly related to alcohol withdrawal or possibly underlying seizure disorder or nonepileptic event. Given uncertainty and concern for possible alcohol withdrawal, I did discuss the case with the on-call hospitalist, Dr. James, and the patient was placed for admission in stable condition for further care. Consultants/Discussions held with other healthcare providers: -Hospitalist, Dr. James Disposition discussion held by myself with: -Patient and girlfriend at bedside Diagnosis: 1. Seizure-like event, acute 2. 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 Aide Required: No Beliefs That Will Affect Care: None marital status: Single Current Living Situation: Significant Other current occupational status: employed Feels Safe at Home: Yes Assistive Devices: None Allergies Allergies Allergy/AdvReac Type Severity Reaction Status Date / Time pollen extracts Allergy Severe Congested Unverified 01/19/23 20:48 Home Meds Home Medications Medication Instructions Recorded Confirmed No Known Home Medications 03/24/23 03/24/23 Results & Data (ED) Vital Signs Vital Signs - 24 hr 07/01/23 08:16 07/01/23 08:16 07/01/23 08:43 Temperature 36.5 C Temperature Source Oral Pulse Rate 88 83 Pulse Rate [Apical] Pulse Rhythm [Apical] Pulse Strength [Apical] Respiratory Rate 12 Respiratory Effort / Characteristics Non-Labored Respiratory Depth Normal Respiratory Pattern Blood Pressure 129/78 Blood Pressure [Right Arm] Blood Pressure Mean 95 Blood Pressure Mean [Right Arm] Pulse Oximetry 97 97 Oxygen Delivery Method Room Air Room Air Oxygen Flow Rate 0 Sepsis Recent Fever Within 48 Hours No Sepsis New/Unexplained Change in Mental Status N/A Sepsis Action Taken by Nursing No Action Required 07/01/23 09:14 07/01/23 12:47 Temperature Temperature Source Pulse Rate 85 Pulse Rate [Apical] 70 Pulse Rhythm [Apical] Regular Pulse Strength [Apical] Normal Respiratory Rate 20 Respiratory Effort / Characteristics Non-Labored Spontaneous Respiratory Depth Normal Respiratory Pattern Regular Blood Pressure Blood Pressure [Right Arm] 101/83 Blood Pressure Mean Blood Pressure Mean [Right Arm] 89 Pulse Oximetry 96 Oxygen Delivery Method Room Air Oxygen Flow Rate Sepsis Recent Fever Within 48 Hours Sepsis New/Unexplained Change in Mental Status Sepsis Action Taken by Nursing Laboratory Data 07/01/23 08:00 07/01/23 08:00 Lab Results 07/01/23 07/01/23 07/01/23 Range/Units 08:00 09:53 10:17 WBC 16.04 H (4.8-10.8) K/ul RBC 5.59 (4.70-6.10) M/uL Hgb 15.8 (14.0-18.0) g/dl Hct 48.6 (42.0-52.0) % MCV 86.9 (80.0-100.0) fL MCH 28.3 (25.0-34.0) pg MCHC 32.5 (32.0-36.0) g/dL RDW Std Deviation 40.5 (36.4-46.3) fL RDW Coeff of [place] 12.8 (11.5-14.5) % Plt Count 301 (130-400) K/uL MPV 9.6 (9.4-12.4) fL VBG pH (7.36-7.41) VBG pCO2 (38-50) mmHg VBG pO2 mmHg VBG HCO3 mmol/L VBG O2 Saturation % VBG Base Excess mEq/L Sodium 135 L (136-145) mmol/L Potassium 3.6 (3.5-5.1) mmol/L Chloride 96 L (98-107) mmol/L Carbon Dioxide 16 L (21-32) mmol/L Anion Gap 23 H (3-11) BUN 18 (6-23) mg/dl Creatinine 1.33 (0.6-1.4) mg/dl Est Cr Clr Drug Dosing 81.2 ml/min Est GFR ( Amer) 85.5 ml/min Est GFR (Non-Af Amer) 73.8 ml/min BUN/Creatinine Ratio 13.5 (10-20) Glucose 127 H (70-99(Fasting)) mg/dl POC Glucose 96 (70-99) mg/dl Lactate 1.4 (0.4-2.0) mmol/L Calcium 10.0 (8.6-10.3) mg/dl Magnesium 1.8 (1.7-2.4) mg/dl Total Bilirubin 1.2 H (0.2-1.0) mg/dl Direct Bilirubin 0.3 H (0-0.2) mg/dl AST 25 (13-39) U/L ALT 13 (7-52) U/L Alkaline Phosphatase 63 (34-104) U/L Total Protein 8.6 H (6.0-8.3) gm/dl Albumin 5.6 H (3.4-5.0) gm/dl Urine Opiates Screen (Neg) Ur Methadone, Qual (Neg) Urine Barbiturates (Neg) Ur Phencyclidine (PCP) (Neg) U Amphetamin/Meth Scrn (Neg) MDMA (Ecstasy) Screen (Neg) U Benzodiazepines Scrn (Neg) Ur Cocaine Metabolite (Neg) U Marijuana (THC) Screen (Neg) Ethyl Alcohol mg/dL (<10.0) mg/dl 07/01/23 07/01/23 Range/Units 10:49 11:16 WBC (4.8-10.8) K/ul RBC (4.70-6.10) M/uL Hgb (14.0-18.0) g/dl Hct (42.0-52.0) % MCV (80.0-100.0) fL MCH (25.0-34.0) pg MCHC (32.0-36.0) g/dL RDW Std Deviation (36.4-46.3) fL RDW Coeff of [place] (11.5-14.5) % Plt Count (130-400) K/uL MPV (9.4-12.4) fL VBG pH 7.37 (7.36-7.41) VBG pCO2 42 (38-50) mmHg VBG pO2 69 mmHg VBG HCO3 24 mmol/L VBG O2 Saturation 95.4 % VBG Base Excess -1.1 mEq/L Sodium (136-145) mmol/L Potassium (3.5-5.1) mmol/L Chloride (98-107) mmol/L Carbon Dioxide (21-32) mmol/L Anion Gap (3-11) BUN (6-23) mg/dl Creatinine (0.6-1.4) mg/dl Est Cr Clr Drug Dosing ml/min Est GFR ( Amer) ml/min Est GFR (Non-Af Amer) ml/min BUN/Creatinine Ratio (10-20) Glucose (70-99(Fasting)) mg/dl POC Glucose (70-99) mg/dl Lactate (0.4-2.0) mmol/L Calcium (8.6-10.3) mg/dl Magnesium (1.7-2.4) mg/dl Total Bilirubin (0.2-1.0) mg/dl Direct Bilirubin (0-0.2) mg/dl AST (13-39) U/L ALT (7-52) U/L Alkaline Phosphatase (34-104) U/L Total Protein (6.0-8.3) gm/dl Albumin (3.4-5.0) gm/dl Urine Opiates Screen Neg (Neg) Ur Methadone, Qual Neg (Neg) Urine Barbiturates Neg (Neg) Ur Phencyclidine (PCP) Neg (Neg) U Amphetamin/Meth Scrn Neg (Neg) MDMA (Ecstasy) Screen Neg (Neg) U Benzodiazepines Scrn Neg (Neg) Ur Cocaine Metabolite Neg (Neg) U Marijuana (THC) Screen Pos H (Neg) Ethyl Alcohol mg/dL < 10.0 (<10.0) mg/dl Administered Medications Lactated Ringer's (Lr) 1,000 mls @ 100 mls/hr IV .Q10H KELI Stop: 07/01/23 20:29 Last Admin: 07/01/23 10:46 Dose: 100 mls/hr Documented By: ARMANDO Discontinued Medications Acetaminophen (Acetaminophen 325 Mg Tab) 650 mg PO NOW STA Stop: 07/01/23 10:47 Last Admin: 07/01/23 11:08 Dose: 650 mg Documented By: NANCY Sodium Chloride (Nss) 1,000 mls @ 999 mls/hr IV .Q1H1M ONE Stop: 07/01/23 09:28 Last Infusion: 07/01/23 10:24 Dose: Infused Documented By: Admin: 07/01/23 09:05 Dose: 999 mls/hr Documented By: DUSTIN Folic Acid 1 mg/ Syringe 10 mls @ 5 mls/min IV NOW STA Stop: 07/01/23 09:39 Last Admin: 07/01/23 10:20 Dose: 5 mls/min Documented By: ARMANDO Thiamine HCl 100 mg/ Syringe 10 mls @ 2 mls/min IV NOW STA Stop: 07/01/23 09:43 Last Admin: 07/01/23 10:20 Dose: 2 mls/min Documented By: ARMANDO Levetiracetam (Levetiracetam 500 Mg/5 Ml Vial) 2,000 mg IV NOW STA Stop: 07/01/23 08:35 Last Admin: 07/01/23 09:06 Dose: 2,000 mg Documented By: DUSTIN Lorazepam (Lorazepam 1 Mg/1 Ml Syr Ed Inj Use) 0.5 mg IV ONE STA Stop: 07/01/23 09:08 Last Admin: 07/01/23 09:11 Dose: 0.5 mg Documented By: DUSTIN Imaging Data Radiologist's Impression: Head CT 07/01/23 08:[address] DOSE: 1094.1 mGy.cm HISTORY: seizure, headache TECHNIQUE: Multiaxial CT images of the head were performed without the use of intravenous contrast. Automated exposure control was utilized for this study. A dose lowering technique was utilized adhering to the principles of ALARA. Comparison: Head CT 03/24/2023. Findings: Motion artifact at the high convexity. The paranasal sinuses and mastoid air cells are clear. The calvarium and skull base are intact. The ventricles and sulci are within normal limits. There is no mass, hematoma, midline shift, or acute infarct. Impression: Motion artifact. No definite acute intracranial abnormality. ACT 112: Negative or not required by law. Electronically signed by: Gamal Abdul M.D. 07/01/2023 9:10 AM Chest X-Ray 07/01/23 10:29 XR chest 1V portable HISTORY: 23 years-old Male Elevated WBC, monitor for pneumonia acute leukocytosis COMPARISON: 02/08/2023 TECHNIQUE: AP view the chest FINDINGS: Cardiac mediastinal and hilar silhouettes are within normal limits. No pneumothorax, pleural effusion or airspace consolidation. Bones of the chest appear grossly intact. IMPRESSION: No acute process ACT 112: Negative or not required by law. The above report was generated using voice recognition software. It may contain grammatical, syntax or spelling errors. Electronically signed by: Cabrera Ralph M.D. 07/01/2023 11:29 AM Discharge Plan Visit Data Chief Complaint: Seizure Stated Complaint: SEIZURE ED Provider: Allen Zacarias Discharge Problem: Observed seizure-like activity Forms Stand Alone Forms: [place] [facility] Prescriptions Prescriptions: No Action No Known Home Medications Referrals Referrals: PCP,NO [Primary Care Provider] -
[2023-07-01 08:41] LABS: Hematocrit (blood only) 48.6 % (42.0-52.0); Hemoglobin 15.8 g/dl (14.0-18.0); Mean Corpuscular Hemoglobin 28.3 pg (25.0-34.0); Mean Corpuscular Hgb Conc 32.5 g/dL (32.0-36.0); Mean Corpuscular Volume 86.9 fL (80.0-100.0); Mean Platelet Volume 9.6 fL (9.4-12.4); Platelet Count 301 K/uL (130-400); RDW Coefficient of Variation 12.8 % (11.5-14.5); RDW Standard Deviation 40.5 fL (36.4-46.3); Red Blood Count 5.59 M/uL (4.70-6.10); White Blood Count 16.04 K/ul (4.8-10.8)
[2023-07-01] MEDS: SODIUM CHLORIDE 0.9% 1,000 ML IV ONE (09:05)
[2023-07-01] MEDS: levETIRAcetam 500 MG/5 ML VIAL IV STA (09:06)
[2023-07-01 09:09] LABS: Albumin Level 5.6 gm/dl (3.4-5.0); BUN Creatinine Ratio 13.5 (10-20); Bilirubin Direct 0.3 mg/dl (0-0.2); Bilirubin,Total 1.2 mg/dl (0.2-1.0); Creatinine Clr Calc Pharmacy 81.2 ml/min; Est GFR (African American) 85.5 ml/min; Est GFR (Non-African American) 73.8 ml/min; Magnesium 1.8 mg/dl (1.7-2.4); Potassium 3.6 mmol/L (3.5-5.1); Total Protein 8.6 gm/dl (6.0-8.3)
[2023-07-01] MEDS: LORazepam 1 MG/1 ML SYR ED Inj Use IV STA (09:11)
--- NOTE | 2023-07-01 09:11 | CT Scan Report ---
HEAD CT NONCONTRAST CT DOSE: 1094.1 mGy.cm HISTORY: seizure, headache TECHNIQUE: Multiaxial CT images of the head were performed without the use of intravenous contrast. A utomated exposure control was utilized for this study. A dose lowering technique was utilized adheri ng to the principles of ALARA. Comparison: Head CT 03/24/2023. Findings: Motion artifact at the high convexity. The paranasal sinuses and mastoid air cells are skylar r. The calvarium and skull base are intact. The ventricles and sulci are within normal limits. There is no mass, hematoma, midline shift, or acute infarct. Impression: Motion artifact. No definite acute intracranial abnormality. ACT 112: Negative or not required by law. Electronically signed by: Gamal Abdul M.D. 07/01/2023 9:10 AM
[2023-07-01] MEDS: THIAMINE HCL 100 MG in SYRINGE 9 ML IV STA (10:20)
[2023-07-01] MEDS: FOLIC ACID 1 MG in SYRINGE 9.8 ML IV STA (10:20)
--- NOTE | 2023-07-01 10:33 | History & Physical Report ---
Date of Service July 01, 2023 Assessment & Plan (1) Seizure: Plan: -Admit to PCU on tele -Currently stable and has been seizure free since arrival -Presented to the ED via EMS after sustaining 2 witnessed seizures while in bed -Ct of the head/brain wo con is negative for acute findings -His previous seizure hx was thought to be due to alcohol/marijuana abuse -He has still been using alcohol and marijuana, and has been non-compliant with his prescribed BID keppra -His headache he presented with has resolved, he is otherwise without signs/symptoms of meningitis at this time -Will obtain CXR and UA to rule out other sources of infection -Does not appear to be in alcohol withdrawal at this time as his vitals are stable, he is alert/oriented and without tremors -Received 2gm IV keppra, 0.5 mg IV ativan, 1L NSS in the ED -Spoke to [facility], appreciate their help >At this time they would recommend resuming his normal keppra dose and recommending alcohol rehab along with Marijuana cessation >If anything unusual would come up in his workup or if needed they would be happy to see hime >Will hold a formal consult for now and monitor the rest of the workup ordered on admission -Continue seizure precautions -Will plan to continue 500 mg PO BID keppra for now -Will monitor on AWSS for possible alcohol withdrawal moving forward -Will give 1L LR on admission -Start clear liquid diet -BL SCD's for DVT PPX -AM CBC, CMP, mag, (2) High anion gap metabolic acidosis: Plan: -Noted to have an AG of 23 with bicarb of 16 -He presented similarly after his last admission as well -His lactate in the ED was WNL at 1.4, but this was also after initial fluid resuscitation -Will monitor medical alcohol level and urine drug profile ordered in the ED -Will obtain VBG on admission -Continue IV hydration (3) Alcohol abuse: Plan: -Exact amount of alcohol use is unclear at this time, would discuss again during admission when patient is more alert -Reports last drink was the night of 06/29 -S/P 1L NSS, 100 mg IV thiamine and 1mg IV folic acid in the ED -Does not appear to be in active withdrawal at this time -Will start AWSS at risk protocol now -Continue seizure precautions -Continue to stress the importance of alcohol cessation (4) Marijuana abuse: Plan: -Daily use per patient and girlfriend -Last use was this am after his first seizure due to having a headache -Explained how marijuana can lower seizure threshold and can be laced with unknown substances -Will follow urine drug profile -Continue to stress the importance of cessation Plan The patient was discussed with Dr. James at the time of the admission History of Present Illness Chief Complaint: Multiple witnessed seizures Primary Care Provider: NO PCP Anatoliy is a 23 year old male with a PMH significant for previous seizures, alcohol abuse, and marijuana abuse who presented to the [facility] ED via EMS on 07/01/23 after having two witnessed seizures while in bed. He remained stable in the ED and has not had another seizure since arrival. Labs were significant for a leukocytosis of 16, AG of 23 with bicarb 16, total bili of 1.2 with direct bili of 0.3. CT of the head was negative for acute findings. The patient was given 2gm IV Keppra, 1L NSS, 0.5 mg IV ativan, 1mg IV folic acid, and 100 mg IV thiamine in the ED prior to admission. Per the ED staff, the patient reported drinking approximately 2 beers "a few" days a week. While speaking with his Girl friend the ED reported that she told them the patient drinks closer to 5-10 drinks, 5 days a week. At the time of the exam the patient was lying in bed in no acute distress with his girlfriend sitting bedside, history was obtained from both. His GF explains that she was woken around 0430 this am due to the patient having a seizure in bed. She states that the first seizure lasted for approximately 1 min. He felt better after the first seizure and went back to bed. He then had another 1 min seizure around 0700 this am which is why EMS was called. When asked, the patient states he has been "lax" with taking his prescribed keppra. He states he has not had a dose since May as he had been feeling well. 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 When asked, he states he does drink beer while at work as well. He uses Marijuana daily and states he used this am after his first seizure as he had a headache. When asked, he states his last drink of alcohol was the night of 06/29. He denies current headache, changes in vision, hearing, taste, smell, paresthesias, chest pain, fever, chills, SOB, cough, abd pain, nausea, vomiting, diarrhea, dysuria, hematuria, LE swelling, and recent trauma. He follows with [facility] outpatient but has not recently followed up with them. Please refer to Dr. James's attestation for any changes to the treatment plan Allergies Allergy/AdvReac Type Severity Reaction Status Date / Time pollen extracts Allergy Severe Congested Unverified 01/19/23 20:48 Home Medications Medication Instructions Recorded Confirmed Type No Known Home Medications 03/24/23 03/24/23 History Past Med/Surg History Medical History Seizure Seizure on 01/15/23 and 01/18/23 Surgical History No significant past surgical history Social History Smoking Status: Current every day smoker Tobacco Type: E-cigarettes / Vaping Hx Alcohol Use: Yes Alcohol type: beer and hard liquor Hx Substance Use: Yes Preferred Language: Panamanian Communication Ability: Effective Communication Instructor Required: No Beliefs That Will Affect Care: None marital status: Single Current Living Situation: Significant Other current occupational status: employed Feels Safe at Home: Yes Assistive Devices: None Physical Exam Physical Exam: Physical Exam: General: In no acute distress, fatigued, stated age, non-toxic appearing HEENT: Normocephalic, atraumatic, no scleral icterus, pupils around round, symmetrical, and reactive to light, moist mucus membranes, trachea midline, no thyromegaly Chest/Pulm: No respiratory distress, symmetrical chest expansion, clear breath sounds throughout Cardiac: RRR, no murmurs noted Abdomen: Negative for ascites and bruising, normoactive bowel sounds, soft, non-tender to palpation throughout Musculoskeletal: Symmetrical and without signs of acute trauma, upper and lower extremities with full ROM, no atrophy, spasticity, or flaccidity Extremities: Radial, dorsalis pedis, and posterior tibial pulses are intact and symmetrical, no edema noted in the BL LE's Skin: Warm, dry, no rashes , lesions, or scars noted Neuro: Alert and oriented to person, place, month, year, and president, no focal defects, CN II-XII tested and intact, no tremors noted Psych: No acute distress, calm and cooperative during the exam Results & Data Results & Data Vital Signs (Past 12 Hours) Vital Signs Temp Pulse Pulse Resp BP BP Pulse Ox 07/01/23 09:14 70 20 101/83 96 07/01/23 08:43 83 07/01/23 08:16 97 07/01/23 08:16 36.5 C 88 12 129/78 97 O2 Del Method O2 Flow Rate 07/01/23 09:14 Room Air 07/01/23 08:43 07/01/23 08:16 Room Air 0 07/01/23 08:16 Room Air Laboratory Results Abnormal lab results 07/01/23 Range/Units 08:00 WBC 16.04 H (4.8-10.8) K/ul Sodium 135 L (136-145) mmol/L Chloride 96 L (98-107) mmol/L Carbon Dioxide 16 L (21-32) mmol/L Anion Gap 23 H (3-11) Glucose 127 H (70-99(Fasting)) mg/dl Total Bilirubin 1.2 H (0.2-1.0) mg/dl Direct Bilirubin 0.3 H (0-0.2) mg/dl Total Protein 8.6 H (6.0-8.3) gm/dl Albumin 5.6 H (3.4-5.0) gm/dl Diagnostic Findings Head CT 07/01/23 08:[address] DOSE: 1094.1 mGy.cm HISTORY: seizure, headache TECHNIQUE: Multiaxial CT images of the head were performed without the use of intravenous contrast. Automated exposure control was utilized for this study. A dose lowering technique was utilized adhering to the principles of ALARA. Comparison: Head CT 03/24/2023. Findings: Motion artifact at the high convexity. The paranasal sinuses and mastoid air cells are clear. The calvarium and skull base are intact. The ventricles and sulci are within normal limits. There is no mass, hematoma, midline shift, or acute infarct. Impression: Motion artifact. No definite acute intracranial abnormality. ACT 112: Negative or not required by law. Electronically signed by: Gamal Abdul M.D. 07/01/2023 9:10 AM Code Status & VTE Plan Code Status Full code VTE Prophylaxis Plan VTE Prophylaxis will be ordered: Yes Supervising Physician Co-Signing Physician Notes Patient seen and examined, chart reviewed, case discussed with Isiah Ugalde PA-C and I agree with the assessment and plan as above except as otherwise noted Labs and images reviewed Anatoliy is a 23-year-old male with past history of seizure in the setting of alcohol and marijuana use previously on Keppra with which he has not been taking regularly who presents with 2 seizures observed by his girlfriend. First seizure occurred in the morning, improved, and then had a second seizure lasting a minute prior to presentation to the ER. Patient initially sedated and confused seemingly postictal. Mental status and alertness improved on reassessment. No focal strength deficits noted on exam. 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 Patient's girlfriend reports that alcohol intake may be more regular and higher than this, no history of withdrawal/tremors. Patient also uses marijuana, denies other recreational substance use. Did use marijuana this morning prior to coming in. Patient has been loaded with Keppra 2 g while in the ER. Agree with observation for recurrent seizure. Multiple risk factors including antiepileptic noncompliance and substance use. Patient is a 23yo & does not appear tachycardic, diaphoretic, or tremulous on exam consistent with alcohol withdrawal although does have regular use and sudden absence x 2 days with subsequent seizure. Agree with continuing on 80 BSS and if signs of withdrawal worsen or develop can give a frontloaded 5 mg Valium dose hourly up to 3 doses to frontload. This is not indicated at time of admitting assessment. Agree with continuing Keppra, and will follow-up with [place] [facility] [place] for additional recommendations, most likely will continue previously advised Keppra twice daily PG Care Time/CCT Total # of Minutes Spent Total Time Spent with Patient: Total time spent is greater than 50% in coordination of care (as documented) at patient's floor/unit and/or counseling patient: C[place] [address] INT INP/OBS CARE 3/75MIN Patient Type Established History Comprehensive Exam Comprehensive Medical Decision Making High Complexity Diagnoses Seizure R56.9 High anion gap metabolic acidosis E87.29 Alcohol abuse F10.10 Marijuana abuse F12.10
[2023-07-01] MEDS ORDERED: LORazepam 1 MG in SYRINGE 0.5 ML IV PRN (10:34)
[2023-07-01] MEDS: LACTATED RINGER'S 1,000 ML IV SCH (10:46)
[2023-07-01] MEDS: ACETAMINOPHEN 325 MG TAB PO STA (11:08)
[2023-07-01 11:26] LABS: Base Excess VBG -1.1 mEq/L; HCO3 VBG 24 mmol/L; Oxygen Saturation VBG 95.4 %; PCO2 VBG 42 mmHg (38-50); PO2 VBG 69 mmHg; pH VBG 7.37 (7.36-7.41)
--- NOTE | 2023-07-01 11:30 | XRay Report ---
XR chest 1V portable HISTORY: 23 years-old Male Elevated WBC, monitor for pneumonia acute leukocytosis COMPARISON: 02/08/2023 TECHNIQUE: AP view the chest FINDINGS: Cardiac mediastinal and hilar silhouettes are within normal limits. No pneumothorax, pleural effusion or airspace consolidation. Bones of the chest appear grossly intact. IMPRESSION: No acute process ACT 112: Negative or not required by law. The above report was generated using voice recognition software. It may contain grammatical, syntax o r spelling errors. Electronically signed by: Cabrera Ralph M.D. 07/01/2023 11:29 AM
[2023-07-01 11:32] LABS: Amphetamines+Metham, Urine Neg (Neg); Barbiturates, Urine Neg (Neg); Benzodiazepine, Urine Neg (Neg); Cocaine, Urine Neg (Neg); MDMA (Ecstacy), Urine Neg (Neg); Marijuana, Urine Pos (Neg); Methadone, Urine Neg (Neg); Opiate, Urine Neg (Neg); Phencyclidine, Urine Neg (Neg)
--- OUTSIDE RECORDS SUMMARY | 2023-07-01 13:14 | External Medical Summary | Summary of Care ---
Author Name Unknown Organization [facility] Address [address] [place] [address] Phone [phone] Care Team Providers Care Trout Farmer Name Role Phone Tonio Thomas DO Primary Care Provider [phone] Reason for Visit * Reason Comments EEG Encounter Details Date Type Department Care Team (Late Contact Info) Description 02/25/2023 9:00 AM EDT NeuroDiagnostic Study Neurophysiology [facility] [address] [place] [address] Sp, Neurophys Tech [address] [place] [address] Allergies No known active allergiesdocumented as of this encounter (statuses as of 03/10/2023) Medications Medication Sig Dispensed Refills Start Date End Date Status levETIRAcetam 500 MG Oral Tablet (Keppra) Take 1 Tablet by mouth in the morning and 1 Tablet before bedtime. 60 Tablet 11 01/30/2023 Active documented as of this encounter (statuses as of 03/10/2023) Active Problems No known active problems documented as of this encounter (statuses as of 03/10/2023) Social History Tobacco Use Types Packs/Day Years Used Date Smoking Tobacco: Former Smokeless Tobacco: Never Sex and Gender Information Value Date Recorded Sex Assigned at Not on file Gender Identity Not on file Sexual Orientation Not on file Job Start Date Occupation Industry Not on file Not on file Not on file documented as of this encounter Plan of Treatment Upcoming Encounters Date Type Department Care Team (Late Contact Info) Description 03/26/2023 1:45 PM EST Imaging Radiology [address] [place] [address] Health Maintenance Due Date Last Done Comments Hepatitis B (1 of 3 - 3-dose series) 1998 COVID-19 Vaccine (#1) 1998 DTaP,Tdap,and Td Vaccines (6 - Tdap) 2009 12/17/2003, 06/08/1999, 1998, Additional history exists GARDASIL-HPV IMMUNIZATION SERIES (1 - Male 2-dose series) 2009 Depression Screening 2010 Hepatitis C Screening 01/18/2016 Influenza Vaccine (FLU shot) (#1) 2023 MENINGOCOCCAL (MENACTRA/MENVEO) Aged Out No longer eligible based on patient's age to complete this topic Pneumococcal Vaccine: Pediatrics (0 to 5 Years) and At-Risk Patients (6 to 64 Years) Aged Out No longer eligible based on patient's age to complete this topic documented as of this encounter Medical Devices Not on filedocumented as of this encounter Visit Diagnoses Diagnosis Seizure (HCC) [R56.9]- Primary Other convulsions documented in this encounter Care Teams Trout Farmer Relationship Specialty Start Date End Date Tonio Thomas DO [address] [address] PCP - General Family Medicine 09/26/20 documented as of this encounter
--- OUTSIDE RECORDS SUMMARY | 2023-07-01 13:14 | External Medical Summary | Summary of Care ---
Author Name Unknown Organization [facility] Address [address] [place] [address] Phone [phone] Care Team Providers Care Box Office Agent Name Role Phone Unavailable Primary Care Provider Unavailabl e Reason for Visit * Reason Onset Date Comments Appointment 03/28/2023 MRI Encounter Details Date Type Department Care Team (Late st Contact Info) Description 03/28/2023 Telephone Rad[address], [address] [place] [address] Andree Kirkland RT (M) Appointment (MRI) Allergies No known active allergiesdocumented as of this encounter (statuses as of 03/28/2023) Medications Medication Sig Dispensed Refills Start Date End Date Status levETIRAcetam 500 MG Oral Tablet (Keppra) Take 1 Tablet by mouth in the morning and 1 Tablet before bedtime. 60 Tablet 11 01/30/2023 Active documented as of this encounter (statuses as of 03/28/2023) Active Problems No known active problems documented as of this encounter (statuses as of 03/28/2023) Social History Tobacco Use Types Packs/Day Years Used Date Smoking Tobacco: Former Smokeless Tobacco: Never Sex and Gender Information Value Date Recorded Sex Assigned at Not on file Gender Identity Not on file Sexual Orientation Not on file Job Start Date Occupation Industry Not on file Not on file Not on file documented as of this encounter Miscellaneous Notes * Telephone Encounter - Andree Kirkland RT (M) - 03/28/2023 4:36 PM EST If you answer "yes" to any of the following, please give us a call at before coming to your MRI appointment: Do you have a pacemaker/defibrillator? Do you have any electronic or mechanical implants? Have you had a recent colonoscopy in the last 30 days? Are you or ? Do you work around metal or ever gotten metal in your eyes? Any dermals or body piercing you cannot remove? Do you wear an insulin pump or diabetic monitor? Have you had any tattoos or permanent makeup in the last 4 weeks? Pt aware to arrive at 2:00 PM on 04/01/23 documented in this encounter Plan of Treatment Upcoming Encounters Date Type Department Care Team (Late st Contact Info) Description 04/01/2023 2:00 PM EST Imaging Radiology [address] [place] [address] Health Maintenance Due Date Last Done Comments COVID-19 Vaccine (#1) 1998 DTaP,Tdap,and Td Vaccines (6 - Tdap) 2009 12/17/2003, 06/08/1999, 1998, Additional history exists Depression Screening 2010 Hepatitis C Screening 01/18/2016 Influenza Vaccine (FLU shot) (#1) 2023 Hepatitis B Completed 1998, 04/12, 1998 MENINGOCOCCAL (MENACTRA/MENVEO) Aged Out 04/26/2010 No longer eligible based on patient's age to complete this topic GARDASIL-HPV IMMUNIZATION SERIES Completed 06/20/2011, 06/27/2010, 04/26/2010 Pneumococcal Vaccine: Pediatrics (0 to 5 Years) and At-Risk Patients (6 to 64 Years) Aged Out No longer eligible based on patient's age to complete this topic documented as of this encounter Medical Devices Not on filedocumented as of this encounter
--- OUTSIDE RECORDS SUMMARY | 2023-07-01 13:14 | External Medical Summary | Summary of Care ---
Author Name Unknown Organization [facility] Address [address] [place] [address] Phone [phone] Care Team Providers Care Imaging Administrator Name Role Phone Unavailable Primary Care Provider Unavailabl e Reason for Visit * Reason Onset Date Comments Test Results 04/02/2023 Encounter Details Date Type Department Care Team (Late st Contact Info) Description 04/02/2023 Telephone [facility] [address] [place] [address] Services, Scheduling [address] [place] [address] Test Results Allergies No known active allergiesdocumented as of this encounter (statuses as of 04/08/2023) Medications Medication Sig Dispensed Refills Start Date End Date Status levETIRAcetam 500 MG Oral Tablet (Keppra) Take 1 Tablet by mouth in the morning and 1 Tablet before bedtime. 60 Tablet 11 01/30/2023 Active documented as of this encounter (statuses as of 04/08/2023) Active Problems No known active problems documented as of this encounter (statuses as of 04/08/2023) Social History Tobacco Use Types Packs/Day Years Used Date Smoking Tobacco: Former Smokeless Tobacco: Never Sex and Gender Information Value Date Recorded Sex Assigned at Not on file Gender Identity Not on file Sexual Orientation Not on file Job Start Date Occupation Industry Not on file Not on file Not on file documented as of this encounter Miscellaneous Notes * Telephone Encounter - Betsey Rosenberg LPN - 04/08/2023 9:19 AM EST Call placed to patient, was unable to leave due to VM being full and cannot take any messages. If patient returns call please advise. * Telephone Encounter - Kasey Campbell OSA - 04/02/2023 12:47 PM EST Patient calling to find out any information regarding EEG he took. States no one has called him about it. He understands MRI will take a couple of days before getting results as well. Provider: Kike Thank you. documented in this encounter Plan of Treatment Health Maintenance Due Date Last Done Comments [...]
--- OUTSIDE RECORDS SUMMARY | 2023-07-01 13:14 | External Medical Summary | Summary of Care ---
Author Name Unknown Organization [facility] Address [address] [place] [address] Phone [phone] Care Team Providers Care Layer Out Name Role Phone Unavailable Primary Care Provider Unavailabl e Reason for Visit * Reason Onset Date Comments Test Results 04/02/2023 Encounter Details Date Type Department Care Team (Late st Contact Info) Description 04/02/2023 Telephone [facility] [address] [place] [address] Services, Scheduling [address] [place] [address] Test Results Allergies No known active allergiesdocumented as of this encounter (statuses as of 04/02/2023) Medications Medication Sig Dispensed Refills Start Date End Date Status levETIRAcetam 500 MG Oral Tablet (Keppra) Take 1 Tablet by mouth in the morning and 1 Tablet before bedtime. 60 Tablet 11 01/30/2023 Active documented as of this encounter (statuses as of 04/02/2023) Active Problems No known active problems documented as of this encounter (statuses as of 04/02/2023) Social History Tobacco Use Types Packs/Day Years Used Date Smoking Tobacco: Former Smokeless Tobacco: Never Sex and Gender Information Value Date Recorded Sex Assigned at Not on file Gender Identity Not on file Sexual Orientation Not on file Job Start Date Occupation Industry Not on file Not on file Not on file documented as of this encounter Miscellaneous Notes * Telephone Encounter - Kasey Campbell, ROSALINE - 04/02/2023 12:47 PM EST Patient calling [...]
--- OUTSIDE RECORDS SUMMARY | 2023-07-01 13:14 | External Medical Summary | Summary of Care ---
Author Name Unknown Organization [facility] Address [address] [place] [address] Phone [phone] Care Team Providers Care Baseball Glove Shaper Name Role Phone Tonio Thomas DO Primary Care Provider [phone] Reason for Visit * Reason Comments EEG Encounter Details Date Type Department Care Team (Late Contact Info) Description 02/28/2023 10:30 AM EDT NeuroDiagnostic Study Neurophysiology [facility] [address] [facility] [place] [address] Sp, Neurophys Tech [address] [place] [address] Allergies No known active allergiesdocumented as of [...] Description 03/26/2023 1:45 PM EST Imaging Radiology [address] [place] [address] Health Maintenance Due Date Last Done Comments [...] convulsions documented in this encounter Care Teams Baseball Glove Shaper Relationship Specialty Start Date End Date Tonio Thomas DO [address] [address] PCP - General Family Medicine 09/26/20 documented as of this encounter
--- OUTSIDE RECORDS SUMMARY | 2023-07-01 13:15 | External Medical Summary | Summary of Care ---
Author Name Unknown Organization [facility] Address [address] [place] [address] Phone [phone] Care Team Providers Care Grocery Store Manager Name Role Phone Tonio Thomas DO Primary Care Provider Reason for Referral * Precert (Within 10 days (routine)) - Pending Review Specialty Diagnoses / Procedures Referred By Oscar t Referred To Contact Radiology Diagnoses Provoked seizure (HCC) Procedures MRI BRAIN W WO CONTRAST Sofiya Hernandez MD [address] [place] [address] Referral ID Status Reason Start Date Expiration Date V isits Requested Visits Authorized [id number] Pending Review 01/30/2023 [id number] Encounter Details Date Type Department Care Team Description [facility] [address] [place] [address] Sofiya Hernandez MD [address] [place] [address] Provoked seizure (HCC)* Allergies No known active allergiesdocumented as of this encounter (statuses as of 01/30/2023) Medications Medication Sig Dispensed Refills Start Date End Date Status levETIRAcetam 500 MG Oral Tablet (Keppra) Take 1 Tablet by mouth in the morning and 1 Tablet before bedtime. 60 Tablet 11 01/30/2023 Active documented as of this encounter (statuses as of 01/30/2023) Active Problems No known active problems documented as of this encounter (statuses as of 01/30/2023) Social History Tobacco Use Types Packs/Day Years Used Date Smoking Tobacco: Former Smokeless Tobacco: Never Sex Assigned at Date Recorded Not on file Job Start Date Occupation Industry Not on file Not on file Not on file documented as of this encounter Progress Notes * Sofiya Hermosillo MD - 01/30/2023 8:59 AM EDT Patient location: HOME. I was not in a hospital or clinic location. After connecting through [employer], patient was verified with two unique identifiers. Patient (or authorized legal life assurance representative) was then informed that this was a Telemedicine visit and being conducted confidentially over secure lines. Methods to assure confidentiality were taken. Patient acknowledged consent and understanding of privacy and security of the Telemedicine visit. The patient agreed to participate. EPILEPSY CLINIC NOTE - INITIAL VISIT [facility] Patient Name: Anatoliy Vincent Date of : 2000 CONSULTING DOCTOR: Ref: [id number]] NO STREET ADDRESS AVAILABLE None (office) None (fax) HPI This is a 23 year old with no sig PMH presenting for establishing care for seizures Friday he was drinking. But was not hung over Friday, he had his first seizure. It happened out of sleep, his girlfriend woke up because he yelled, and then he became stiff and started shaking. Lasted 1 min. He bit his tongue, he was out of it, she called EMS. He was confused, but could recognize girlfriend. Went to the ER, had a CTH [birth year] was his birthday, he was drinking all day. Friday he woke up at 11am, he called off from work, was hung over. He went back to sleep. Doesn't know what happened next. He woke up outside his apartment complex, he was naked, in the rain. They called his girlfriend and she had no idea he was outside. The EMT came, on the way to the hospital he had another seizure. He had a CTH and Denies any seizures since then No auras MEDICATION TIMELINE: none PREVIOUS EVALUATIONS: Previous EEG- was told it was normal Previous CTH- ?small spot on his brain per patient SOCIAL HISTORY: EPILEPSY RISK FACTORS: Head trauma: no ORDER BOOKER infections: no Family history of seizures: aunt, alcoholic Developmental delay: no Febrile seizures: no ORDER BOOKER tumors: no ORDER BOOKER vascular disease: no and early development: no FUNCTIONAL STATUS: - Memory: good - Driving: no - Mood: good - Vocation: see social - status: NA ROS: A 14 point review of systems was negative except as noted in HPI PHYSICAL EXAM Constitutional General appearance: No acute distress, well appearing and well nourished. Head and Face Head and face: Normal, atraumatic. Neurologic / Musculoskeletal Mental Status: Appropriately awake, alert, attentive, and interactive. 3rd, 4th, and 6th cranial nerves: Normal. Extraocular movements are full in all directions with no nystagmus. no nystagmus. 7th cranial nerve: Normal. Facial motility is symmetric. 12th cranial nerve: Normal. Tongue is midline with normal movement. Muscle strength:No drift, FTN normal, no tremors. Examination of Coordinated Movements: Normal gait There is no pronator drift. IMPRESSION: Anatoliy is a 23 year old with one unprovoked seizure followed by an episode of status with 2 provoked seizures, without return to baseline in between. All seizures were GTCs without an aura. Unclear if this is focal/ generalized in onset. He had CTH done at [facility] which is not available for review and he was told about there being a spot on his brain. I will get an MRI and EEG for further investigation. Given the unprovoked seizure and the possible lesion on CTH, I decided to start him on anAED. He was counseled about drinking, driving restrictions and seizure safety. If the MRI shows an epileptogenic lesion he will need to remain on AEDs long term acute care registered nurse. Epilepsy Classification: unprovoked seizure vs epilepsy Etiology: unknown Seizure Classification: GTCs Related Condition: none Previous neurosurgery: None PLAN: - AED - Medications refilled - Rescue medication: - EEG and MRI brain - Follow up in 3 months - Seizure precautions and safety, driving restrictions, seizure first aid , importance of medication compliance were discussed and given in writing to patient after the visit. cc: DO Sofiya Byrd MD [facility] Ep[facility] Time spent in visit and chart completion:55 mins documented in this encounter Plan of Treatment Upcoming Encounters Date Type Specialty Care Team Description 02/25/2023 NeuroDiagnostic Study Neurophysiology Sp, Neurophys Tech [address] [facility] [place] [address] 02/28/2023 NeuroDiagnostic Study Neurophysiology Sp, Neurophys Tech [address] [facility] [place] [address] Scheduled Orders Name Type Priority Associated Diagnoses Orde r Schedule MRI BRAIN W WO CONTRAST Medical Imaging Routine Provoked seizure (HCC) Ordered: 01/30/2023 EEG AMBULATORY Procedures Routine Provoked seizure (HCC) Ordered: 01/30/2023 Health Maintenance Due Date Last Done Comments Hepatitis B (1 of 3 - 3-dose series) 2000 COVID-19 Vaccine (#1) 2000 GARDASIL-HPV IMMUNIZATION SE TEREZA (1 - Male 2-dose series) 2009 Depression Screening 2010 Hepatitis C Screening 01/18/2016 DTaP,Tdap,and Td Vaccines (1 - Tdap) 2017 Influenza Vaccine (FLU shot) (#1) 2023 MENINGOCOCCAL (MENACTRA/MENVEO) Aged Out No longer eligible based on patient's age to complete this topic Pneumococcal Vaccine: Pediat rics (0 to 5 Years) and At-Risk Patients (6 to 64 Years) Aged Out No longer eligible b ased on patient's age to complete this topic documented as of this encounter Medical Devices Not on filedocumented as of this encounter Visit Diagnoses Diagnosis Provoked seizure (HCC)- Primary Other convulsions documented in this encounter Care Teams Grocery Store Manager Relationship Specialty Start Date End Date Tonio Thomas DO [address] [place] [id number] PCP - General Family Medicine 09/26/20 documented as of this encounter
[2023-07-01] MEDS ORDERED: ACETAMINOPHEN 325 MG TAB PO PRN (15:29)
--- NOTE | 2023-07-01 17:51 | Electrocardiogram Report ---
Test Reason : Blood Pressure : / mmHG Vent. Rate : 088 BPM Atrial Rate : 088 BPM P-R Int : 140 ms QRS Dur : 088 ms QT Int : 340 ms P-R-T Axes : 071 080 083 degrees QTc Int : 411 ms Normal sinus rhythm with sinus arrhythmia Normal ECG When compared with ECG of 24-MAR-2023 22:23, No significant change was found Confirmed by Rachid Gee ([id number]) on 07/01/2023 5:51:26 PM Referred By: REFERRED SELF Confirmed By:Delroy Gee
--- NOTE | 2023-07-01 20:00 | Discharge Summary ---
Date of Service July 01, 2023 Admission HPI Per Admitting Provider Anatoliy is a 23 year old male with a PMH significant for previous seizures, alcohol abuse, and marijuana abuse who presented to the [facility] ED via EMS on 07/01/23 after having two witnessed seizures while in bed. He remained stable in the ED and has not had another seizure since arrival. Labs were significant for a leukocytosis of 16, AG of 23 with bicarb 16, total bili of 1.2 with direct bili of 0.3. CT of the head was negative for acute findings. The patient was given 2gm IV Keppra, 1L NSS, 0.5 mg IV ativan, 1mg IV folic acid, and 100 mg IV thiamine in the ED prior to admission. Per the ED staff, the patient reported drinking approximately 2 beers "a few" days a week. While speaking with his Girlfriend the ED reported that she told them the patient drinks closer to 5-10 drinks, 5 days a week. At the time of the exam the patient was lying in bed in no acute distress with his girlfriend sitting bedside, history was obtained from both. His GF explains that she was woken around 0430 this am due to the patient having a seizure in bed. She states that the first seizure lasted for approximately 1 min. He felt better after the first seizure and went back to bed. He then had another 1 min seizure around 0700 this am which is why EMS was called. When asked, the patient states he has been "lax" with taking his prescribed keppra. He states he has not had a dose since May as he had been feeling well. 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 When asked, he states he does drink beer while at work as well. He uses Marijuana daily and states he used this am after his first seizure as he had a headache. When asked, he states his last drink of alcohol was the night of 06/29. He denies current headache, changes in vision, hearing, taste, smell, paresthesias, chest pain, fever, chills, SOB, cough, abd pain, nausea, vomiting, diarrhea, dysuria, hematuria, LE swelling, and recent trauma. He follows with [facility] outpatient but has not recently followed up with them. Please refer to Dr. Baresel's attestation for any changes to the treatment plan Admission Exam Per Admitting Provider General: In no acute distress, fatigued, stated age, non-toxic appearing HEENT: Normocephalic, atraumatic, no scleral icterus, pupils around round, symmetrical, and reactive to light, moist mucus membranes, trachea midline, no thyromegaly Chest/Pulm: No respiratory distress, symmetrical chest expansion, clear breath sounds throughout Cardiac: RRR, no murmurs noted Abdomen: Negative for ascites and bruising, normoactive bowel sounds, soft, non- tender to palpation throughout Musculoskeletal: Symmetrical and without signs of acute trauma, upper and lower extremities with full ROM, no atrophy, spasticity, or flaccidity Extremities: Radial, dorsalis pedis, and posterior tibial pulses are intact and symmetrical, no edema noted in the BL LE's Skin: Warm, dry, no rashes , lesions, or scars noted Neuro: Alert and oriented to person, place, month, year, and president, no focal defects, CN II-XII tested and intact, no tremors noted Psych: No acute distress, calm and cooperative during the exam Principal Diagnosis Recurrent seizures Discharge Exam General: In no acute distress, stated age, non-toxic appearing HEENT: Normocephalic, atraumatic, no scleral icterus, pupils around round, symmetrical, and reactive to light, moist mucus membranes, trachea midline, no thyromegaly Chest/Pulm: No respiratory distress, symmetrical chest expansion, clear breath sounds throughout Cardiac: RRR, no murmurs noted Abdomen: Negative for ascites and bruising, normoactive bowel sounds, soft, non- tender to palpation throughout Musculoskeletal: Symmetrical and without signs of acute trauma, upper and lower extremities with full ROM, no atrophy, spasticity, or flaccidity Extremities: Radial, dorsalis pedis, and posterior tibial pulses are intact and symmetrical, no edema noted in the BL LE's Skin: Warm, dry, no rashes , lesions, or scars noted Neuro: Alert and oriented to person, place, month, year, and president, no focal defects, CN II-XII tested and intact, no tremors noted Psych: No acute distress, calm and cooperative during the exam Discharge Data Allergies Allergy/AdvReac Type Severity Reaction Status Date / Time pollen extracts Allergy Severe Congested Verified 07/01/23 15:34 Consultations 07/01/23 10:00 ED Decision to Admit Stat Ordered Studies 07/01/23 08:34 CT head/brain wo con Stat Hospital Course (1) Observed seizure-like activity: Plan Patient presented to the ED via EMS on the morning of 07/01/23 after experiencing 2 seizures lasting approximately 1 minute each and witnessed by his significant other. Patient has a hx of previous seizures which were thought to be provoked due to alcohol and marijuana abuse. Patient explained that he had not been taking his home keppra for the past month and had continued to use alcohol and marijuana. CT of the head was negative for acute findings. He was noted to have an elevated anion gap metabolic acidosis thought to be due to dehydration and recent seizures. VBG obtained on admission was WNL. Patient's infectious workup was negative. He was given 2gm IV keppra, 0.5 mg IV ativan, 1L NSS, 1mg IV folic acid, and 100 mg IV thiamine in the ED prior to admission. He remained stable throughout the day and was without recurrent seizure activity. The patient wished to go home in the evening as he was feeling back to his baseline. The hospital medicine staff spoke to the patient multiple times and expressed their recommendations for the patient to stay and be observed for 24 hours due to him experiencing multiple seizures earlier in the day and being non-complaint with his home keppra dosing. It was explained to him that while alcohol and marijuana could be playing a role in his recurrent seizures, it was recommended he being observed overnight to monitor for recurrent seizures on his normal keppra dosing. Risks of leaving AMA were explained to the patient and his significant other which included recurrent seizures, status epilepticus, and possible if he were to experience recurrent seizures at home. The patient expressed understanding of the risks and was able to clearly and coherently explain them to the hospital medicine team. The patient stated that he had an entire bottle of keppra at home, with refills. He was instructed to resume his normal BID dosing immediately upon returning home, he and his significant other expressed understanding. The patient expressed that he would return to the nearest ED or call 911 if he were to have new or recurrent symptoms. His significant other explained that she would be home with him and would monitor him closely. The patient signed out AMA shortly after discussions with the Hospital Medicine team. Total Time Total Time Spent Total Time Spent (In Minutes): 30 minutes Discharge Plan Discharge Items Patient Disposition: Against Medical Advice Reason For Visit: SEIZURE Condition on Discharge: Good Activity: Resume your previous activity Non-emergency contact: Primary Care Provider Follow-up/Referrals: PCP,NO [Primary Care Provider] - Pending Studies at Discharge: No Stand-Alone Forms: My [employer], Smoking Cessation Skilled Items Patient informed of condition?: Yes DNR: No Discharge Level of Care: Other Communicable Disease: No Discharge Prognosis: Stable Medications and DC Order Prescriptions: Continued levetiracetam 500 mg tablet 500 mg PO BID Discharge Orders: Left Against Medical Advice (Routine); Ordered 07/01/23 Ordered By: Isiah Valentine/Other Patient Handouts: ED Marijuana Abuse, ED Seizure, Recurrent (Adult) Admission Data Admit Date/Time: 07/01/23 10:16 Attending Provider: Nacho James Admit Provider: Nacho James Primary Care Provider: PCP,NO Other Providers: Nacho James Supervising Physician Co-Signing Physician Notes Patient seen and examined, chart reviewed, case discussed with Isiah Ugalde PA-C Pt requesting AMA discharge. Seen at bedside with PA provider. Pt reports he feels well and would like to go home. Reports he is actually only drinking ~ 1 drink per day, and does not feel any signs or sx of withdrawal. Discussed risks/benefits of ongoing monitoring and recommended overnight observation given multiple seizure episodes this morning, and . Pt verbalizes he has a risk of recurrent seizure and , but would like to leave AMA. He reports he has a full bottle of Keppra 500mg BID which he will continue taking and will call to followup with neurology and get refills. Aware the marijuana may induce seizure. His partner is present at the bedside and reports she will drive him home and be with him for observation, pt agrees he will not drive. A&Ox4, no focal deficits, does not appear post ictal at bedside. Agree w/ assessment and documentation as above. Coding Level of Care Code Established Pt INP/OBS EV SAME DAY LV 3,85MIN Patient Type Established Medical Decision Making High Complexity Diagnoses Observed seizure-like activity R56.9
[2023-07-01] MEDS ORDERED: levETIRAcetam 500 MG TAB PO SCH (21:00)
[2023-07-02] MEDS ORDERED: THIAMINE HCL 100 MG TAB PO SCH (09:00)
[2023-07-02] MEDS ORDERED: FOLIC ACID 1 MG TAB PO SCH (09:00)
[2023-07-02 23:53] LABS: Marijuana Quant, GCMS Urine 310 ng/mL (<5)
== END 2023-07-01 20:12 | disposition left against medical advice (07) | DRG 101 ==
LOC: ED 08:09 → EDINP 10:16 → INTOOBSV 10:16 → EDINP 15:30